=== PATIENT | female | born 1935 | race Caucasian/White ===

== ENCOUNTER 2020-04-04 16:27 | Inpatient (IN) | payer OTHER, MEDICARE ==
[2020-04-04 17:28] VITALS: BMI 29.2
[2020-04-04] MEDS ORDERED: PIPERACILLIN/TAZOB 2.25 GM 2.25 GM in DEXTROSE 5%-WATER - 50 ML IVPB ONE (17:50)
[2020-04-04] MEDS ORDERED: VANCOMYCIN 1 GM in D5W (PRE-DOCKED) 1,000 MG/250 ML IVPB ONE (17:51)
[2020-04-04] MEDS ORDERED: VANCOMYCIN 1,000 MG VIAL (RESTRICTED TO ID ONLY) ONE (18:07)
[2020-04-04 18:15] LABS: INR 1.11 (0.82-1.09); PROTHROMBIN TIME (PATIENT) 12.4 SEC (10.2-13.0)
[2020-04-04 18:21] LABS: ALBUMIN 4.1 g/dl (3.4-5.0); BILIRUBIN,TOTAL 0.7 mg/dl (0.2-1); CALCIUM 8.8 mg/dl (8.5-10); CREATININE 0.5 mg/dl (0.55-1.3); POTASSIUM 3.7 mmol/L (3.5-5.1); TOT PROT 7.5 g/dl (6.4-8.2)
[2020-04-04 18:54] LABS: BASO % 0.5 % (0-2.0); EOS % 1.6 % (0-4.5); HEMATOCRIT 37.8 % (32.4-45.2); HEMOGLOBIN 12.6 GM/dL (10.7-15.3); LYMPH % 9.2 % (8-40); MCH 28.8 pg (25.7-33.7); MCHC 33.3 g/dl (32.0-36.0); MEAN CELL VOLUME 86.4 fl (80-96); MEAN PLT VOLUME 9.2 fl (7.5-11.1); MONO % 7.4 % (3.8-10.2); NEUT % 81.3 % (42.8-82.8); PLATELET COUNT 291 K/MM3 (134-434); RBC 4.38 M/mm3 (3.60-5.2); WHITE BLOOD COUNT 9.1 K/mm3 (4.0-10.0)
--- NOTE | 2020-04-04 18:58 | PDOC ---
Documentation entered by Lois Doll SCRIBE, acting as scribe for Marito Saldana MD. Marito Saldana MD: This documentation has been prepared by the Lavon nieves Maria, SCRIBE, under my direction and personally reviewed by me in its entirety. I confirm that the documentation accurately reflects all work, treatment, procedures, and medical decision making performed by me. History of Present Illness - General Chief Complaint: Wound Stated Complaint: SENT FOR ADMISSION FOR CELLULITIS OF Time Seen by Provider: 04/04/20 16:54 History Source: Patient Exam Limitations: No Limitations - History of Present Illness Initial Comments: 04/04/20 18:08 The patient is an 84 year old female with a significant past medical history of hypertension, Arthritis, Neuropathy, recurrent cellulitis and a prosthetic hip who presents to the emergency department with cellulitis. Patient had positive blood cultures presumed cellulitis and was treated with prolonged IV antibiotics via picc line. Today, patient was seen by infectious disease doctor, Dr. Edwards, and was found to have cellulites and an abscess on her LLE, abscess was drained, and was referred to the emergency department for IV antibiotics and observation. Physical exam: Alert and oriented no acute distress cooperative Afebrile, vital signs normal HEENT normal Neck supple without bruit mass or nodes Lungs clear CV regular without murmur rub or gallop Abdomen soft nontender without mass organomegaly Extremities: Both extremities are extensively bandaged. This was performed after I&D of an abscess of the left leg at the wound care center today. Bandages were not disturbed. Infectious disease consult is familiar with the exam, having performed the I&D today. Assessment: Recurrent cellulitis left leg Plan: Admit for intravenous antibiotics and further evaluation infectious disease. Patient clinically and hemodynamically stable at present, no fever or significant pain. Past History - Medical History Allergies/Adverse Reactions: Allergies Allergy/AdvReac Type Severity Reaction Status Date / Time No Known Allergies Allergy Verified 04/04/20 16:52 Home Medications: Ambulatory Orders Multivitamin [Multivitamins] 1 each PO DAILY 01/13/13 Triamterene/Hydrochlorothiazid [Triamterene-Hctz 37.5-25 mg Tb] 1 each PO DAILY 01/13/13 Vitamin E 200 unit PO Q72H 01/13/13 Aspirin [Aspirin EC] 650 mg PO TID 01/10/14 Iron,Carbonyl/Ascorbic Acid [Iron 100-Vitamin C Tablet] 1 each PO DAILY tablet 12/18/14 Vitamin A 8,000 unit PO Q3RD DAY capsule 12/18/14 Vitamin B Complex 1 each PO ASDIR tablet 12/18/14 Cholecalciferol (Vitamin D3) [Vitamin D3 -] 1,000 unit PO DAILY 03/06/20 Docusate Sodium [Colace -] 100 mg PO TID #30 capsule 03/14/20 Metoprolol Succinate [Toprol Xl] 25 mg PO DAILY #30 tab.er.24h 03/14/20 Aspirin [ASA -] 975 mg PO HS 04/04/20 Astaxanthin 4 mg PO DAILY 04/04/20 Cephalexin [Keflex] 500 mg PO TID 04/04/20 Potassium Chloride 2 tab PO DAILY 04/04/20 Anemia: No Asthma: No Cancer: Yes (BASAL CELL CA 12/2012) Cardiac Disorders: No CVA: No COPD: No CHF: No Dementia: No Diabetes: No GI Disorders: No Disorders: No HTN: Yes Hypercholesterolemia: No Liver Disease: No Seizures: No Thyroid Disease: No Other medical history: CELLULITIS BOTH LEG, RHEUMATOID ARTHRITS - Surgical History Abdominal Surgery: No Appendectomy: No Cardiac Surgery: No Cholecystectomy: No Lung Surgery: No Neurologic Surgery: No Orthopedic Surgery: (RECONSTRUCTIVE LEFT HIP SURGERY WITH BONE GRAFT 2010) - Psycho-Social/Smoking History Smoking History: Never smoked Have you smoked in the past 12 months: No Information on smoking cessation initiated: No - Substance Abuse Hx (Audit-C & DAST Scrn) How often the patient has a drink containing alcohol: Never Score: In Men: 4 or > Positive; In Women: 3 or > Positive: 0 Screen Result (Pos requires Nsg. Audit-10AR): Negative In the last yr the pt used illegal drug/Rx for NonMed reason: No Score: Yes response is considered Positive: 0 Screen Result (Positive result requires Nsg. DAST-10): Negative Review of Systems - Review of Systems Able to Perform ROS?: Yes Comments:: 04/04/20 18:11 CONSTITUTIONAL: Absent: fever, chills, diaphoresis, generalized weakness, malaise, loss of appetite HEENT: Absent: rhinorrhea, nasal congestion, throat pain, throat swelling, difficulty swallowing, mouth swelling, ear pain, eye pain, visual Changes CARDIOVASCULAR: Absent: chest pain, syncope, palpitations, irregular heart rate, lightheadednes s, peripheral edema RESPIRATORY: Absent: cough, shortness of breath, dyspnea with exertion, orthopnea, wheezing, stridor, hemoptysis GASTROINTESTINAL: Absent: abdominal pain, abdominal distension, nausea, vomiting, diarrhea, constipation, melena, hematochezia GENITOURINARY: Absent: dysuria, frequency, urgency, hesitancy, hematuria, flank pain, genital pain MUSCULOSKELETAL: +LLE edema Absent: myalgia, arthralgia, joint swelling SKIN: Absent: rash, itching, pallor HEMATOLOGIC/IMMUNOLOGIC: Absent: easy bleeding, easy bruising, lymphadenopathy, frequent infections ENDOCRINE: Absent: unexplained weight gain, unexplained weight loss, heat intolerance, cold intolerance NEUROLOGIC: Absent: headache, focal weakness or paresthesias, dizziness, unsteady gait, seizure, mental status changes, bladder or bowel incontinence PSYCHIATRIC: Absent: anxiety, depression, suicidal or homicidal ideation, hallucinations. *Physical Exam - Vital Signs Last Vital Signs Temp Pulse Resp BP Pulse Ox 98.2 F 84 18 154/79 99 04/04/20 16:42 04/04/20 16:42 04/04/20 16:42 04/04/20 16:42 04/04/20 16:42 - Physical Exam 04/04/20 18:46 GENERAL: Well developed, well nourished. Awake and alert. No acute distress. HEENT: Normocephalic, atraumatic. PERRLA, EOMI. No conjunctival pallor. Sclera are non- icteric. Moist mucous membranes. Oropharynx is clear. NECK: Supple. Full ROM. No JVD. Carotid pulses 2+ and symmetric, without bruits. No thyromegaly. No lymphadenopathy. CARDIOVASCULAR: Regular rate and rhythm. No murmurs, rubs, or gallops. Distal pulses are 2+ and symmetric. PULMONARY: No evidence of respiratory distress. Lungs clear to auscultation bilaterally. No wheezing, rales or rhonchi. ABDOMINAL: Soft. Non-tender. Non-distended. No rebound or guarding. No organomegaly. Normoactive bowel sounds. MUSCULOSKELETAL : + typical joint deformities of rheumatoid arthritis on the hands and feet. No acute inflammation Normal range of motion at all joints. No bony deformities or tenderness. No CVA tenderness. EXTREMITIES: Cite of IND well dressed and not examined again. No cyanosis. No clubbing SKIN: Warm and dry. Normal capillary refill. No rashes. No jaundice. NEUROLOGICAL: Alert, awake, appropriate. Cranial nerves 2-12 intact. No deficits to light touch and temperature in face, upper extremities and lower extremities. No motor deficits in the in face, upper extremities and lower extremities. Normoreflexic in the upper and lower extremities. Normal speech. Toes are down-going bilaterally. Gait is normal without ataxia. PSYCHIATRIC: Cooperative. Good eye contact. Appropriate mood and affect. ED Treatment Course - LABORATORY CBC & Chemistry Diagram: 04/07/20 06:00 04/06/20 05:40 Discharge - Discharge Information Problems reviewed: Yes Clinical Impression/Diagnosis: Cellulitis of lower extremity Qualifiers: Laterality: left Qualified Code(s): L03.116 - Cellulitis of left lower limb - Admission Yes - Follow up/Referral - Patient Discharge Instructions - Post Discharge Activity
[2020-04-04] MEDS ORDERED: ACETAMINOPHEN 325 MG TABLET (FP) ONE (19:06)
[2020-04-04] MEDS ORDERED: ACETAMINOPHEN 325 MG TABLET (FP) PO ONE (19:12)
[2020-04-05] MEDS ORDERED: PIPERACILLIN/TAZOBACTAM 3.375 GM VIAL IVPB ONE ×2 (08:59→17:32)
[2020-04-05] MEDS ORDERED: DEXTROSE 5%-WATER - 50 ML IVPB ONE ×2 (08:59→17:32)
[2020-04-05] MEDS: ENOXAPARIN NA (PORCINE) 40 MG/0.4 ML DISP.SYRIN SQ SCH (09:09)
[2020-04-05] MEDS ORDERED: PIPERACILLIN/TAZOB 3.375 GM 3.375 GM in DEXTROSE 5%-WATER - 50 ML IVPB SCH (10:00)
[2020-04-05] MEDS: metoPROLOL SUCCINATE 25 MG TAB.SR.24H (FP) PO SCH (10:13)
--- NOTE | 2020-04-05 11:05 | CON.ID ---
Consult - Past Medical History Cardio/Vascular: Yes: AFIB Rheumatology: Yes: Rheumatoid Arthritis - Alcohol/Substance Use Hx Alcohol Use: No - Smoking History Smoking history: Never smoked Have you smoked in the past 12 months: No - Social History Usual Living Arrangement: With Spouse History of Recent Travel: No Home Medications - Allergies Allergies/Adverse Reactions: Allergies Allergy/AdvReac Type Severity Reaction Status Date / Time No Known Allergies Allergy Verified 04/04/20 16:52 - Home Medications Home Medications: Ambulatory Orders Multivitamin [Multivitamins] 1 each PO DAILY 01/13/13 Triamterene/Hydrochlorothiazid [Triamterene-Hctz 37.5-25 mg Tb] 1 each PO DAILY 01/13/13 Vitamin E 200 unit PO Q72H 01/13/13 Aspirin [Aspirin EC] 650 mg PO TID 01/10/14 Iron,Carbonyl/Ascorbic Acid [Iron 100-Vitamin C Tablet] 1 each PO DAILY tablet 12/18/14 Vitamin A 8,000 unit PO Q3RD DAY capsule 12/18/14 Vitamin B Complex 1 each PO ASDIR tablet 12/18/14 Cholecalciferol (Vitamin D3) [Vitamin D3 -] 1,000 unit PO DAILY 03/06/20 Docusate Sodium [Colace -] 100 mg PO TID #30 capsule 03/14/20 Metoprolol Succinate [Toprol Xl] 25 mg PO DAILY #30 tab.er.24h 03/14/20 Aspirin [ASA -] 975 mg PO HS 04/04/20 Astaxanthin 4 mg PO DAILY 04/04/20 Cephalexin [Keflex] 500 mg PO TID 04/04/20 Potassium Chloride 2 tab PO DAILY 04/04/20 Physical Exam Vital Signs: Vital Signs Temperature 98.4 F 04/05/20 09:50 Pulse Rate 75 04/05/20 09:50 Respiratory Rate 18 04/05/20 09:50 Blood Pressure 157/69 04/05/20 09:50 O2 Sat by Pulse Oximetry (%) 100 04/05/20 06:32 Labs: CBC, BMP 04/04/20 17:50 04/04/20 17:26
--- NOTE | 2020-04-05 11:45 | HP ---
CHIEF COMPLAINT: LLE abscess PCP: Dr. Miller HISTORY OF PRESENT ILLNESS: 84 year-old female with a PMH significant for HTN, paroxysmal atrial fibrillation, venous insufficiency, and rheumatoid arthritis. Recently hospitalized from 03/06-03/14 for LLE cellulitis and MSSA bacteremia, discharged with PICC line x 2 weeks Ancef. Patient was seen in [facility] on 04/[address] Edwards and found to have abscess of LLE and bilateral cellulitis. Dr. Jackson performed an incision and drainage. Patient was directed to the [facility] for admission to the hospital. ER course was notable for: (1) afebrile, no leukocytosis Recent Travel: No PAST MEDICAL HISTORY: Hypertension Paroxysmal atrial fibrillation Venous insufficiency Rheumatoid arthritis LLE cellulitis (March 2020) PAST SURGICAL HISTORY: Left hip replacement x 3 (partial, complete, revision) Social History: Lives with . Mostly independent in ADLs with some assistance from him. Patient has been housebound since November, no known COVID exposures Smoking: None Alcohol: None Drugs: None Family history: mother 97; father 84; 1 brother with arthritis Allergies No Known Allergies Allergy (Verified 04/04/20 16:52) HOME MEDICATIONS: Home Medications Medication Instructions Recorded Multivitamin [Multivitamins] 1 each PO DAILY 01/13/13 Triamterene/Hydrochlorothiazid 1 each PO DAILY 01/13/13 [Triamterene-Hctz 37.5-25 mg Tb] Vitamin E 200 unit PO Q72H 01/13/13 Aspirin [Aspirin EC] 650 mg PO TID 01/10/14 Iron,Carbonyl/Ascorbic Acid [Iron 1 each PO DAILY tablet 12/18/14 100-Vitamin C Tablet] Vitamin A 8,000 unit PO Q3RD DAY capsule 12/18/14 Vitamin B Complex 1 each PO ASDIR tablet 12/18/14 Cholecalciferol (Vitamin D3) 1,000 unit PO DAILY 03/06/20 [Vitamin D3 -] Docusate Sodium [Colace -] 100 mg PO TID #30 capsule 03/14/20 Metoprolol Succinate [Toprol Xl] 25 mg PO DAILY #30 tab.er.24h 03/14/20 Aspirin [ASA -] 975 mg PO HS 04/04/20 Astaxanthin 4 mg PO DAILY 04/04/20 Cephalexin [Keflex] 500 mg PO TID 04/04/20 Potassium Chloride 2 tab PO DAILY 04/04/20 REVIEW OF SYSTEMS CONSTITUTIONAL: Absent: fever, chills, diaphoresis, generalized weakness, malaise, loss of appetite, weight change HEENT: Absent: rhinorrhea, nasal congestion, throat pain, throat swelling, difficulty swallowing, mouth swelling, ear pain, eye pain, visual changes CARDIOVASCULAR: Absent: chest pain, syncope, palpitations, irregular heart rate, lightheadedness, peripheral edema RESPIRATORY: Absent: cough, shortness of breath, dyspnea with exertion, orthopnea, wheezing, stridor, hemoptysis GASTROINTESTINAL: Absent: abdominal pain, abdominal distension, nausea, vomiting, diarrhea, constipation, melena, hematochezia GENITOURINARY: Absent: dysuria, frequency, urgency, hesitancy, hematuria, flank pain, genital pain MUSCULOSKELETAL: Absent: myalgia, arthralgia, joint swelling, back pain, neck pain SKIN: +bilateral lower extremity redness, pain in LLE Absent: rash, itching, pallor HEMATOLOGIC/IMMUNOLOGIC: Absent: easy bleeding, easy bruising, lymphadenopathy, frequent infections ENDOCRINE: Absent: unexplained weight gain, unexplained weight loss, heat intolerance, cold intolerance NEUROLOGIC: Absent: headache, focal weakness or paresthesias, dizziness, unsteady gait, seizure, mental status changes, bladder or bowel incontinence PSYCHIATRIC: Absent: anxiety, depression, suicidal or homicidal ideation, hallucinations. PHYSICAL EXAMINATION Vital Signs - 24 hr 04/04/20 04/04/20 04/04/20 16:42 20:55 21:00 Temperature 98.2 F 98.2 F Pulse Rate 84 84 Respiratory 18 18 19 Rate Blood Pressure 154/79 154/79 O2 Sat by Pulse 99 99 99 Oximetry (%) 04/04/20 04/05/20 04/05/20 22:37 02:00 03:50 Temperature 98.5 F 98.3 F 97.9 F Pulse Rate 98 H 88 76 Respiratory 18 19 18 Rate Blood Pressure 130/73 141/62 153/66 O2 Sat by Pulse 97 99 Oximetry (%) 04/05/20 04/05/20 06:32 09:50 Temperature 98.4 F Pulse Rate 75 Respiratory 18 Rate Blood Pressure 157/69 O2 Sat by Pulse 100 Oximetry (%) GENERAL: Awake, alert, and fully oriented, in no acute distress. HEAD: Normal with no signs of trauma. EYES: Pupils equal, round and reactive to light, extraocular movements intact, sclera anicteric, conjunctiva clear. No lid lag. LUNGS: Breath sounds equal, clear to auscultation bilaterally. No wheezes, and no crackles. No accessory muscle use. HEART: Regular rate and rhythm, normal S1 and S2 ABDOMEN: Soft, nontender, not distended UPPER EXTREMITIES: 2+ pulses, warm, well-perfused. No cyanosis. No clubbing. No peripheral edema. RIGHT LOWER EXTREMITY: erythema, warmth posterior lower leg and foot, mild fluctuance lateral malleolus, no skin break seen LEFT LOWER EXTREMITY: dressing removed with dry black eschar and blood; 3cm w ound is clean, no exudate, no bleeding, no surrounding fluctuance; erythema and warmth to lower leg NEUROLOGICAL: Cranial nerves II-XII intact. Normal speech. Laboratory Results - last 24 hr 04/04/20 04/04/20 04/04/20 17:26 17:26 17:26 WBC RBC Hgb Hct MCV MCH MCHC RDW Plt Count MPV Absolute Neuts (auto) Neutrophils % Lymphocytes % Monocytes % Eosinophils % Basophils % Nucleated RBC % PT with INR 12.4 INR 1.11 Sodium 136 Potassium 3.7 Chloride 98 Carbon Dioxide 24 Anion Gap 14 BUN 15.0 Creatinine 0.5 L Est GFR (CKD-EPI)AfAm 103.73 Est GFR (CKD-EPI)NonAf 89.50 Random Glucose 104 Calcium 8.8 Total Bilirubin 0.7 AST 28 ALT 19 Alkaline Phosphatase 85 D Creatine Kinase 54 Troponin I < 0.03 Total Protein 7.5 Albumin 4.1 Urine Color Urine Appearance Urine pH Urine Protein Urine Glucose (UA) Urine Ketones Urine Blood Urine Nitrite Urine Bilirubin Urine Urobilinogen Ur Leukocyte Esterase Urine RBC Urine WBC Urine Bacteria 04/04/20 04/04/20 17:50 17:50 WBC 9.1 RBC 4.38 Hgb 12.6 Hct 37.8 D MCV 86.4 MCH 28.8 MCHC 33.3 RDW 16.0 H Plt Count 291 D MPV 9.2 D Absolute Neuts (auto) 7.4 Neutrophils % 81.3 Lymphocytes % 9.2 Monocytes % 7.4 Eosinophils % 1.6 Basophils % 0.5 Nucleated RBC % 0 PT with INR INR Sodium Potassium Chloride Carbon Dioxide Anion Gap BUN Creatinine Est GFR (CKD-EPI)AfAm Est GFR (CKD-EPI)NonAf Random Glucose Calcium Total Bilirubin AST ALT Alkaline Phosphatase Creatine Kinase Troponin I Total Protein Albumin Urine Color Yellow Urine Appearance Clear Urine pH 7.0 Urine Protein Negative Urine Glucose (UA) Negative Urine Ketones Negative Urine Blood Negative Urine Nitrite Negative Urine Bilirubin Negative Urine Urobilinogen 0.2 Ur Leukocyte Esterase Trace H Urine RBC 0-2 Urine WBC 5-10 Urine Bacteria Few ASSESSMENT/PLAN: 84 year-old female with a PMH significant for HTN, paroxysmal atrial fibrillation, venous insufficiency, and rheumatoid arthritis. Recently hospitalized from 03/06-03/14 for LLE cellulitis and MSSA bacteremia. Bilateral lower extremity cellulitis Right lower extremity abscess --s/p I&D on 04/04 --continue Vanc (day #1) and Zosyn (day #1); cultures pending --xerofoam dressings daily --compression stockings bilaterally Paroxysmal atrial fibrillation --diagnosed during recent hospitalization --decision made not to start anticoagulation due to high ASA dose for RA --rate is well-controlled, continue ToprolXL Rheumatoid arthritis --continue home aspirin regimen 975mg TID --start protonix FEN Fluids: PO intake adequate Electrolytes: replete as indicated Nutrition: low sodium DVT prophylaxis: subq lovenox Physical therapy Dispo: continues to require inpatient care. Full code. Visit type - Emergency Visit Emergency Visit: Yes ED Registration Date: 04/04/20 Care time: The patient presented to the Emergency Department on the above date and was hospitalized for further evaluation of their emergent condition. - New Patient This patient is new to me today: Yes Date on this admission: 04/05/20 - Critical Care Critical Care patient: No
[2020-04-05] MEDS: VANCOMYCIN 1 GRAM (PRE-DOCKED) 1 GM/250 ML BAG IVPB SCH (12:00)
[2020-04-05] MEDS ORDERED: ASPIRIN 325 MG ENTERIC COATED TABLET (FP) PO SCH (14:00)
--- NOTE | 2020-04-05 14:08 | EKG ---
Test Reason : Blood Pressure : / mmHG Vent. Rate : 098 BPM Atrial Rate : 117 BPM P-R Int : 000 ms QRS Dur : 086 ms QT Int : 366 ms P-R-T Axes : 000 007 008 degrees QTc Int : 467 ms ATRIAL FIBRILLATION ABNORMAL ECG WHEN COMPARED WITH ECG OF 08-MAR-2020 15:56, INVERTED T WAVES HAVE REPLACED NONSPECIFIC T WAVE ABNORMALITY IN INFERIOR LEADS Confirmed by SAMSON GARCIA MD ([id number]) on 04/05/2020 2:07:39 PM Referred By: MD REYES Confirmed By:SAMSON GARCIA MD
[2020-04-05] MEDS: DOCUSATE SODIUM 100 MG CAPSULE (FP) PO SCH ×3 (14:55→21:55)
[2020-04-05] MEDS: PANTOPRAZOLE 40 MG TABLET PO SCH (15:13)
[2020-04-05] MEDS: ASPIRIN 325 MG TABLET PO SCH ×4 (15:13→23:50)
[2020-04-05] MEDS: PIPERACILLIN/TAZOB 3.375 GM 3.375 GM in DEXTROSE 5%-WATER - 50 ML IVPB SCH (18:03)
[2020-04-05] MEDS ORDERED: ASPIRIN 325 MG TABLET PO SCH (22:00)
[2020-04-06] MEDS ORDERED: DEXTROSE 5%-WATER - 50 ML IVPB ONE ×2 (01:06→11:36)
[2020-04-06] MEDS ORDERED: PIPERACILLIN/TAZOBACTAM 3.375 GM VIAL IVPB ONE ×2 (01:06→11:36)
[2020-04-06] MEDS: PIPERACILLIN/TAZOB 3.375 GM 3.375 GM in DEXTROSE 5%-WATER - 50 ML IVPB SCH ×2 (01:21→10:05)
--- NOTE | 2020-04-06 05:36 | PN ---
Physical Exam: SUBJECTIVE: Patient seen and examined OBJECTIVE: Vital Signs Period Temp Pulse Resp BP Sys/Stover Pulse Ox Last 24 Hr 98.2 F-99.0 F 75-84 18-18 142-164/64-73 97-100 GENERAL: Awake, alert, and fully oriented, in no acute distress. LUNGS: Breath sounds equal, clear to auscultation bilaterally. No wheezes, and no crackles. No accessory muscle use. HEART: Regular rate and rhythm, ABDOMEN: Soft, nontender, not distended UPPER EXTREMITIES: 2+ pulses, warm, well-perfused. No cyanosis. No clubbing. No peripheral edema. RIGHT LOWER EXTREMITY: erythema, warmth posterior lower leg and foot, mild fluctuance lateral malleolus, no skin break seen LEFT LOWER EXTREMITY: dressing removed again with dry black eschar and blood; 3cm wound is clean, no exudate, no bleeding, no surrounding fluctuance; erythema and warmth to lower leg NEUROLOGICAL: Cranial nerves II-XII intact. Normal speech. Laboratory Results - last 24 hr 04/04/20 04/05/20 17:55 11:30 Ur Random Creatinine 30.0 COVID-19 (GAUDENCIO) Not detected Current Medications Generic Name Dose Route Start Last Admin Trade Name Freq PRN Reason Stop Dose Admin Aspirin 975 mg 04/05/20 14:45 04/06/20 21:31 Asa - PO 975 mg TID DAVY Administration Docusate Sodium 100 mg 04/05/20 06:00 04/06/20 21:31 Colace - PO Not Given TID DAVY Enoxaparin Sodium 40 mg 04/05/20 10:00 04/06/20 10:05 Lovenox - SQ 40 mg DAILY DAVY Administration Ampicillin Sodium/Sulbactam 100 mls @ 200 mls/hr 04/06/20 15:00 04/06/20 21:30 Sodium 3 gm/ Sodium Chloride IVPB 200 mls/hr Q6H-IV DAVY Administration Metoprolol Succinate 25 mg 04/05/20 10:00 04/06/20 10:25 Toprol Xl - PO 25 mg DAILY DAVY Administration Multivitamins/Minerals/Vitamin C 1 tab 04/06/20 10:00 04/06/20 10:25 Tab-A-Vit - PO 1 tab DAILY DAVY Administration Pantoprazole Sodium 40 mg 04/05/20 13:00 04/06/20 10:15 Protonix - PO 40 mg DAILY DAVY Administration Triamterene/HCTZ 1 cap 04/06/20 10:00 04/06/20 10:00 Dyazide 25/37.5mg PO 1 cap DAILY DAVY Administration ASSESSMENT/PLAN: 84 year-old female with a PMH significant for HTN, paroxysmal atrial fibrill ation, venous insufficiency, and rheumatoid arthritis. Recently hospitalized from 03/06-03/14 for LLE cellulitis and MSSA bacteremia. Bilateral lower extremity cellulitis Right lower extremity abscess --s/p I&D on 04/04 --switched to Unasyn today (day #2 IV antibiotics) --xerofoam dressings daily --compression stockings bilaterally Paroxysmal atrial fibrillation --diagnosed during recent hospitalization, decision made not to start anticoagulation due to high ASA dose for RA; primary care provider in agreement per records --on admission was in afib, now in sinus rhythm, rate controlled --continue ToprolXL Rheumatoid arthritis --continue home aspirin regimen 975mg TID --continue protonix FEN Fluids: PO intake adequate Electrolytes: replete as indicated Nutrition: low sodium DVT prophylaxis: subq lovenox Physical therapy Dispo: continues to require inpatient care. Plan is to discharge on Thursday. Full code. Visit type - Emergency Visit Emergency Visit: Yes ED Registration Date: 04/04/20 Care time: The patient presented to the Emergency Department on the above date and was hospitalized for further evaluation of their emergent condition. - New Patient This patient is new to me today: Yes Date on this admission: 04/06/20 - Critical Care Critical Care patient: No
[2020-04-06] MEDS: DOCUSATE SODIUM 100 MG CAPSULE (FP) PO SCH ×3 (06:28→21:31)
[2020-04-06] MEDS: ASPIRIN 325 MG TABLET PO SCH ×3 (06:29→21:31)
[2020-04-06 08:21] LABS: HEMATOCRIT 33.6 % (32.4-45.2); HEMOGLOBIN 11.3 GM/dl (10.7-15.3); MCHC 33.8 g/dl (32.0-36.0); MEAN CELL VOLUME 83.1 fl (80-96); MEAN PLT VOLUME 8.7 fl (7.5-11.1); PLATELET COUNT 209 K/MM3 (134-434); RBC 4.04 M/mm3 (3.60-5.2); RDW 14.5 % (11.6-15.6); WHITE BLOOD COUNT 5.7 K/mm3 (4.0-10.8)
[2020-04-06 08:26] LABS: CALCIUM 8.5 mg/dl (8.5-10); CREATININE 0.6 mg/dl (0.55-1.3); POTASSIUM 3.4 mmol/L (3.5-5.1)
[2020-04-06] MEDS: TRIAMTERENE AND HCTZ - 37.5 MG/25 MG CAPSULE PO SCH (10:00)
[2020-04-06] MEDS: ENOXAPARIN NA (PORCINE) 40 MG/0.4 ML DISP.SYRIN SQ SCH (10:05)
[2020-04-06] MEDS: PANTOPRAZOLE 40 MG TABLET PO SCH (10:15)
[2020-04-06] MEDS: MULTIVITAMINS (DAILY MVI) TABLET (FP) PO SCH (10:25)
[2020-04-06] MEDS: metoPROLOL SUCCINATE 25 MG TAB.SR.24H (FP) PO SCH (10:25)
--- NOTE | 2020-04-06 10:36 | EKG ---
Test Reason : Blood Pressure : / mmHG Vent. Rate : 076 BPM Atrial Rate : 076 BPM P-R Int : 184 ms QRS Dur : 090 ms QT Int : 408 ms P-R-T Axes : 050 -02 019 degrees QTc Int : 459 ms NORMAL SINUS RHYTHM NORMAL ECG WHEN COMPARED WITH ECG OF 04-APR-2020 17:29, SINUS RHYTHM HAS REPLACED ATRIAL FIBRILLATION Confirmed by NAT NUNEZ MD ([id number]) on 04/06/2020 10:36:19 AM Referred By: RAJ GHOTRA Confirmed By:NAT NUNEZ MD
[2020-04-06] MEDS ORDERED: POTASSIUM CHLORIDE TABS 20 MEQ TABLET.ER (FP) PO ONE (11:15)
[2020-04-06] MEDS ORDERED: PT OWN MED DRAWER 7, Y5N ONE (11:36)
[2020-04-06] MEDS: VANCOMYCIN 1 GRAM (PRE-DOCKED) 1 GM/250 ML BAG IVPB SCH (11:59)
--- NOTE | 2020-04-06 14:34 | PN ---
Progress Note, Physician History of Present Illness: Pt states she is feeling "ok" but sometimes has sharp stabbing pain in LLE. Still with LLE edema/erythema. Afebrile, without any other complaints. - Current Medication List Current Medications: Active Medications Aspirin (Asa -) 975 mg PO TID [facility] Last Admin: 04/06/20 06:29 Dose: Not Given Documented by: Docusate Sodium (Colace -) 100 mg PO TID [facility] Last Admin: 04/06/20 06:28 Dose: Not Given Documented by: Enoxaparin Sodium (Lovenox -) 40 mg SQ DAILY [facility] Last Admin: 04/06/20 10:05 Dose: 40 mg Documented by: Vancomycin HCl (Vancomycin (Pre-Docked)) 1 gm in 250 mls @ 166.667 mls/hr IVPB Q24H [facility]; Protocol Last Admin: 04/06/20 11:59 Dose: 166.667 mls/hr Documented by: Piperacillin Sod/Tazobactam (Sod 3.375 gm/ Dextrose) 50 mls @ 100 mls/hr IVPB Q8H-IV [facility]; Protocol Last Admin: 04/06/20 10:05 Dose: 100 mls/hr Documented by: Metoprolol Succinate (Toprol Xl -) 25 mg PO DAILY [facility] Last Admin: 04/06/20 10:25 Dose: 25 mg Documented by: Multivitamins/Minerals/Vitamin C (Tab-A-Vit -) 1 tab PO DAILY [facility] Last Admin: 04/06/20 10:25 Dose: 1 tab Documented by: Pantoprazole Sodium (Protonix -) 40 mg PO DAILY [facility] Last Admin: 04/06/20 10:15 Dose: 40 mg Documented by: Triamterene/HCTZ (Dyazide 25/37.5mg) 1 cap PO DAILY [facility] Last Admin: 04/06/20 10:00 Dose: 1 cap Documented by: - Objective Vital Signs: Vital Signs Temperature 98.5 F 04/06/20 14:20 Pulse Rate 75 04/06/20 14:20 Respiratory Rate 16 04/06/20 14:20 Blood Pressure 150/56 L 04/06/20 14:20 O2 Sat by Pulse Oximetry (%) 100 04/06/20 14:20 Constitutional: Yes: No Distress, Calm Cardiovascular: Yes: Regular Rate and Rhythm Respiratory: Yes: Regular Gastrointestinal: Yes: Normal Bowel Sounds, Soft Wound/Incision: Yes: Other (LLE erythema/warmth/edema with mild tenderness, Lt calf incision site with mild surrounding induration/no fluctuance, serosangu inous discharge noted on dressing) Labs: CBC, BMP 04/06/20 05:40 04/06/20 05:40 INR, PTT INR 1.11 (0.82-1.09) 04/04/20 17:26 Laboratory Last Values WBC 5.7 K/mm3 (4.0-10.8) 04/06/20 05:40 RBC 4.04 M/mm3 (3.60-5.2) 04/06/20 05:40 Hgb 11.3 GM/dl (10.7-15.3) 04/06/20 05:40 Hct 33.6 % (32.4-45.2) D 04/06/20 05:40 MCV 83.1 fl (80-96) 04/06/20 05:40 MCH 28.0 pg (25.7-33.7) 04/06/20 05:40 MCHC 33.8 g/dl (32.0-36.0) 04/06/20 05:40 RDW 14.5 % (11.6-15.6) 04/06/20 05:40 Plt Count 209 K/MM3 (134-434) 04/06/20 05:40 MPV 8.7 fl (7.5-11.1) 04/06/20 05:40 Absolute Neuts (auto) 7.4 K/mm3 (1.5-8.0) 04/04/20 17:50 Neutrophils % 81.3 % (42.8-82.8) 04/04/20 17:50 Lymphocytes % 9.2 % (8-40) 04/04/20 17:50 Monocytes % 7.4 % (3.8-10.2) 04/04/20 17:50 Eosinophils % 1.6 % (0-4.5) 04/04/20 17:50 Basophils % 0.5 % (0-2.0) 04/04/20 17:50 Nucleated RBC % 0 % (0-0) 04/04/20 17:50 PT with INR 12.4 SEC (10.2-13.0) 04/04/20 17:26 INR 1.11 (0.82-1.09) 04/04/20 17:26 Sodium 136 mmol/L (136-145) 04/06/20 05:40 Potassium 3.4 mmol/L (3.5-5.1) L 04/06/20 05:40 Chloride 101 mmol/L (98-107) 04/06/20 05:40 Carbon Dioxide 24 mmol/L (21-32) 04/06/20 05:40 Anion Gap 11 MMOL/L (8-16) 04/06/20 05:40 BUN 14.0 mg/dl (7-18) 04/06/20 05:40 Creatinine 0.6 mg/dl (0.55-1.3) 04/06/20 05:40 Est GFR (CKD-EPI)AfAm 97.69 04/06/20 05:40 Est GFR (CKD-EPI)NonAf 84.29 04/06/20 05:40 Random Glucose 99 mg/dl (74-106) 04/06/20 05:40 Calcium 8.5 mg/dl (8.5-10) 04/06/20 05:40 Total Bilirubin 0.7 mg/dl (0.2-1) 04/04/20 17:26 AST 28 U/L (15-37) 04/04/20 17:26 ALT 19 U/L (13-61) 04/04/20 17:26 Alkaline Phosphatase 85 U/L (45-117) D 04/04/20 17:26 Creatine Kinase 54 U/L (26-192) 04/04/20 17:26 Troponin I < 0.03 ng/ml (0.00-0.05) 04/04/20 17:26 Total Protein 7.5 g/dl (6.4-8.2) 04/04/20 17:26 Albumin 4.1 g/dl (3.4-5.0) 04/04/20 17:26 Urine Color Yellow 04/04/20 17:50 Urine Appearance Clear 04/04/20 17:50 Urine pH 7.0 (4.5-8) 04/04/20 17:50 Urine Protein Negative (NEGATIVE) 04/04/20 17:50 Urine Glucose (UA) Negative (NEGATIVE) 04/04/20 17:50 Urine Ketones Negative (NEGATIVE) 04/04/20 17:50 Urine Blood Negative (NEGATIVE) 04/04/20 17:50 Urine Nitrite Negative (NEGATIVE) 04/04/20 17:50 Urine Bilirubin Negative (NEGATIVE) 04/04/20 17:50 Urine Urobilinogen 0.2 (0.2-1.0) 04/04/20 17:50 Ur Leukocyte Esterase Trace (NEGATIVE) H 04/04/20 17:50 Urine RBC 0-2 /hpf (0-4) 04/04/20 17:50 Urine WBC 5-10 (NEGATIVE) 04/04/20 17:50 Urine Bacteria Few /hpf (NEGATIVE) 04/04/20 17:50 Ur Random Creatinine 30.0 mg/dL 04/05/20 11:30 COVID-19 ([facility]) Not detected (Not Detected) 04/04/20 17:55 Laboratory Tests 04/04/20 04/04/20 04/04/20 17:26 17:26 17:26 WBC RBC Hgb Hct MCV MCH MCHC RDW Plt Count MPV Absolute Neuts (auto) Neutrophils % Lymphocytes % Monocytes % Eosinophils % Basophils % Nucleated RBC % PT with INR 12.4 INR 1.11 Sodium 136 Potassium 3.7 Chloride 98 Carbon Dioxide 24 Anion Gap 14 BUN 15.0 Creatinine 0.5 L Est GFR (CKD-EPI)AfAm 103.73 Est GFR (CKD-EPI)NonAf 89.50 Random Glucose 104 Calcium 8.8 Total Bilirubin 0.7 AST 28 ALT 19 Alkaline Phosphatase 85 D Creatine Kinase 54 Troponin I < 0.03 Total Protein 7.5 Albumin 4.1 Urine Color Urine Appearance Urine pH Urine Protein Urine Glucose (UA) Urine Ketones Urine Blood Urine Nitrite Urine Bilirubin Urine Urobilinogen Ur Leukocyte Esterase Urine RBC Urine WBC Urine Bacteria Ur Random Creatinine COVID-19 ([facility]) 04/04/20 04/04/20 04/04/20 17:50 17:50 17:55 WBC 9.1 RBC 4.38 Hgb 12.6 Hct 37.8 D MCV 86.4 MCH 28.8 MCHC 33.3 RDW 16.0 H Plt Count 291 D MPV 9.2 D Absolute Neuts (auto) 7.4 Neutrophils % 81.3 Lymphocytes % 9.2 Monocytes % 7.4 Eosinophils % 1.6 Basophils % 0.5 Nucleated RBC % 0 PT with INR INR Sodium Potassium Chloride Carbon Dioxide Anion Gap BUN Creatinine Est GFR (CKD-EPI)AfAm Est GFR (CKD-EPI)NonAf Random Glucose Calcium Total Bilirubin AST ALT Alkaline Phosphatase Creatine Kinase Troponin I Total Protein Albumin Urine Color Yellow Urine Appearance Clear Urine pH 7.0 Urine Protein Negative Urine Glucose (UA) Negative Urine Ketones Negative Urine Blood Negative Urine Nitrite Negative Urine Bilirubin Negative Urine Urobilinogen 0.2 Ur Leukocyte Esterase Trace H Urine RBC 0-2 Urine WBC 5-10 Urine Bacteria Few Ur Random Creatinine COVID-19 ([facility]) Not detected 04/05/20 04/06/20 04/06/20 11:30 05:40 05:40 WBC 5.7 RBC 4.04 Hgb 11.3 Hct 33.6 D MCV 83.1 MCH 28.0 MCHC 33.8 RDW 14.5 Plt Count 209 MPV 8.7 Absolute Neuts (auto) Neutrophils % Lymphocytes % Monocytes % Eosinophils % Basophils % Nucleated RBC % PT with INR INR Sodium 136 Potassium 3.4 L Chloride 101 Carbon Dioxide 24 Anion Gap 11 BUN 14.0 Creatinine 0.6 Est GFR (CKD-EPI)AfAm 97.69 Est GFR (CKD-EPI)NonAf 84.29 Random Glucose 99 Calcium 8.5 Total Bilirubin AST ALT Alkaline Phosphatase Creatine Kinase Troponin I Total Protein Albumin Urine Color Urine Appearance Urine pH Urine Protein Urine Glucose (UA) Urine Ketones Urine Blood Urine Nitrite Urine Bilirubin Urine Urobilinogen Ur Leukocyte Esterase Urine RBC Urine WBC Urine Bacteria Ur Random Creatinine 30.0 COVID-19 ([facility]ENC[facility]) Microbiology 04/04/20 17:50 Urine - Urine Clean Catch Urine Culture - Final NO GROWTH OBTAINED 04/04/20 18:08 Blood - Peripheral Venous Blood Culture - Preliminary NO GROWTH OBTAINED AFTER 24 HOURS, INCUBATION TO CONTINUE FOR 4 DAYS. 04/04/20 17:50 Blood - Peripheral Venous Blood Culture - Preliminary NO GROWTH OBTAINED AFTER 24 HOURS, INCUBATION TO CONTINUE FOR 4 DAYS. Wound culture LLE abscess - coagulase neg staph Problem List - Problems (1) Cellulitis of lower extremity Code(s): L03.119 - CELLULITIS OF UNSPECIFIED PART OF LIMB Qualifiers: Laterality: left Qualified Code(s): L03.116 - Cellulitis of left lower limb (2) HTN (hypertension) Code(s): I10 - ESSENTIAL (PRIMARY) HYPERTENSION (3) Rheumatoid arthritis Code(s): M06.9 - RHEUMATOID ARTHRITIS, UNSPECIFIED Assessment/Plan LLE cellulitis with collection s/p drainage RA AFIB HTN Hx of MSSA bactermia -- culture results noted, wound culture from abscess site just prior to admission : coag negative staph, blood cultures neg 24h -- d/c Zosyn/Vancomycin, will switch to Unasyn IV -- LLE still with significant erythema/edema -- continue wound care to Lt calf incision site -- monitor for improvement
[2020-04-06] MEDS ORDERED: AMPICILLIN NA/SULBACTAM NA 3 GM VIAL ONE ×2 (15:21→21:27)
[2020-04-06] MEDS ORDERED: SODIUM CHLORIDE 100 ML IVPB ONE ×2 (15:21→21:27)
[2020-04-06] MEDS: AMPICILLIN NA/SULBACTAM NA 3 GM in SODIUM CHLORIDE 100 ML IVPB SCH ×2 (15:23→21:30)
[2020-04-07] MEDS ORDERED: AMPICILLIN NA/SULBACTAM NA 3 GM VIAL ONE ×4 (02:02→20:13)
[2020-04-07] MEDS ORDERED: SODIUM CHLORIDE 100 ML IVPB ONE ×4 (02:02→20:13)
[2020-04-07] MEDS: AMPICILLIN NA/SULBACTAM NA 3 GM in SODIUM CHLORIDE 100 ML IVPB SCH ×4 (02:06→20:15)
[2020-04-07] MEDS: DOCUSATE SODIUM 100 MG CAPSULE (FP) PO SCH ×4 (06:21→21:06)
[2020-04-07] MEDS: ASPIRIN 325 MG TABLET PO SCH ×3 (08:02→21:05)
[2020-04-07] MEDS ORDERED: PT OWN MED DRAWER 7, Y5N ONE (08:30)
[2020-04-07 09:06] LABS: BASO % 1.1 % (0-2.0); EOS % 5.4 % (0-4.5); HEMATOCRIT 33.9 % (32.4-45.2); HEMOGLOBIN 11.1 GM/dL (10.7-15.3); LYMPH % 19.5 % (8-40); MCH 28.2 pg (25.7-33.7); MCHC 32.8 g/dl (32.0-36.0); MONO % 11.2 % (3.8-10.2); NEUT % 62.8 % (42.8-82.8); PLATELET COUNT 190 K/MM3 (134-434); RBC 3.94 M/mm3 (3.60-5.2); RDW 15.9 % (11.6-15.6); WHITE BLOOD COUNT 5.5 K/mm3 (4.0-10.0)
--- NOTE | 2020-04-07 09:10 | PN ---
Physical Exam: SUBJECTIVE: Patient seen and examined at bedside, reports bilateral lower ext pain well controlled,no other complains. OBJECTIVE: Vital Signs Period Temp Pulse Resp BP Sys/Stover Pulse Ox Last 24 Hr 97.3 F-98.5 F 73-84 16-18 133-153/56-68 96-100 GENERAL: The patient is awake, alert, and fully oriented, in no acute distress. HEAD: Normal with no signs of trauma. EYES: PERRL, extraocular movements intact, sclera anicteric, conjunctiva clear. No ptosis. ENT: Ears normal, nares patent, oropharynx clear without exudates, moist mucous membranes. NECK: Trachea midline, full range of motion, supple. LUNGS: Breath sounds equal, clear to auscultation bilaterally, no wheezes, no crackles, no accessory muscle use. HEART: Regular rate and rhythm, S1, S2 without murmur, rub or gallop. ABDOMEN: Soft, nontender, nondistended, normoactive bowel sounds, no guarding, no rebound, no hepatosplenomegaly, no masses. EXTREMITIES: RLE mild erythema, no wound ,2+ pulses, warm, well-perfused, no edema. LLE-dry black eschar and blood; 3cm wound is clean, erythema and warmth, pulse intact,trace edema NEUROLOGICAL: Cranial nerves II through XII grossly intact. Normal speech, gait not observed. PSYCH: Normal mood, normal affect. SKIN: Warm, dry, normal turgor, no rashes or lesions noted Active Medications Generic Name Dose Route Start Last Admin Trade Name Freq PRN Reason Stop Dose Admin Aspirin 975 mg 04/05/20 14:45 04/07/20 08:02 Asa - PO 975 mg TID [facility] Administration Docusate Sodium 100 mg 04/05/20 06:00 04/07/20 07:11 Colace - PO Not Given TID [facility] Enoxaparin Sodium 40 mg 04/05/20 10:00 04/06/20 10:05 Lovenox - SQ 40 mg DAILY [facility] Administration Ampicillin Sodium/Sulbactam 100 mls @ 200 mls/hr 04/06/20 15:00 04/07/20 08:06 Sodium 3 gm/ Sodium Chloride IVPB 200 mls/hr Q6H-IV [facility] Administration Metoprolol Succinate 25 mg 04/05/20 10:00 04/06/20 10:25 Toprol Xl - PO 25 mg DAILY [facility] Administration Multivitamins/Minerals/Vitamin C 1 tab 04/06/20 10:00 04/06/20 10:25 Tab-A-Vit - PO 1 tab DAILY [facility] Administration Pantoprazole Sodium 40 mg 04/05/20 13:00 04/06/20 10:15 Protonix - PO 40 mg DAILY [facility] Administration Triamterene/HCTZ 1 cap 04/06/20 10:00 04/06/20 10:00 Dyazide 25/37.5mg PO 1 cap DAILY [facility] Administration CxR: CM, no acute lung pathology. Microbiology 04/04/20 18:08 Blood Culture - Preliminary Blood - Peripheral Venous NO GROWTH OBTAINED AFTER 48 HOURS, INCUBATION TO CONTINUE FOR 3 DAYS. 04/04/20 17:50 Blood Culture - Preliminary Blood - Peripheral Venous NO GROWTH OBTAINED AFTER 48 HOURS, INCUBATION TO CONTINUE FOR 3 DAYS. 04/04/20 17:50 Urine Culture - Final Urine - Urine Clean Catch NO GROWTH OBTAINED ASSESSMENT/PLAN: 84 year-old female with a PMH significant for HTN, paroxysmal atrial fibrillation, venous insufficiency, and rheumatoid arthritis. Recently h ospitalized from 03/06-03/14 for LLE cellulitis and MSSA bacteremia. Now found to have abscess of LLE and bilateral cellulitis.Covid negative. *Bilateral lower extremity cellulitis Right lower extremity abscess -s/p I&D on 04/04 -switched to Unasyn 04/06/20(day #3 IV antibiotics) -xerofoam dressings daily -compression stockings bilaterally - afebrile with no leukocytosis *Paroxysmal atrial fibrillation -on admission was in afib, now in sinus rhythm, rate controlled -diagnosed during recent hospitalization, decision made not to start anticoagulation due to high ASA dose for RA; primary care provider in agreement per records -continue Toprol XL *Rheumatoid arthritis -continue home aspirin regimen 975mg TID -continue protonix * HTN- BP stable - will cont on home Dyazide FEN Fluids: PO intake adequate Electrolytes: replete as indicated Nutrition: low sodium DVT prophylaxis: subq Lovenox Physical therapy done, Rec Rehab vs home with home health services and home Dispo: continues to require inpatient care. Plan is to discharge on Thursday. Full code. Visit type - Emergency Visit Emergency Visit: Yes ED Registration Date: 04/04/20 Care time: The patient presented to the Emergency Department on the above date and was hospitalized for further evaluation of their emergent condition. - New Patient This patient is new to me today: Yes Date on this admission: 04/07/20 - Critical Care Critical Care patient: No
[2020-04-07] MEDS: PANTOPRAZOLE 40 MG TABLET PO SCH (09:11)
[2020-04-07] MEDS: metoPROLOL SUCCINATE 25 MG TAB.SR.24H (FP) PO SCH (09:11)
[2020-04-07] MEDS: TRIAMTERENE AND HCTZ - 37.5 MG/25 MG CAPSULE PO SCH (09:11)
[2020-04-07] MEDS: ENOXAPARIN NA (PORCINE) 40 MG/0.4 ML DISP.SYRIN SQ SCH (09:11)
[2020-04-07] MEDS: MULTIVITAMINS (DAILY MVI) TABLET (FP) PO SCH (09:11)
[2020-04-07 10:37] LABS: ALBUMIN 3.2 g/dl (3.4-5.0); BILIRUBIN,TOTAL 0.5 mg/dL (0.2-1); BLOOD UREA NITROGEN 11.4 mg/dL (7-18); CALCIUM 8.4 mg/dL (8.5-10.1); CREATININE 0.5 mg/dL (0.55-1.3); MAGNESIUM 2.2 mg/dL (1.8-2.4); POTASSIUM 3.5 mmol/L (3.5-5.1); TOT PROT 6.5 g/dl (6.4-8.2)
[2020-04-07] MEDS ORDERED: POTASSIUM CHLORIDE TABS 20 MEQ TABLET.ER (FP) PO ONE (11:20)
--- NOTE | 2020-04-07 13:07 | PN ---
Progress Note, Physician History of Present Illness: Pt is alert, afebrile. No new complaints - Current Medication List Current Medications: Active Medications Aspirin (Asa -) 975 mg PO TID [facility] Last Admin: 04/07/20 08:02 Dose: 975 mg Documented by: Docusate Sodium (Colace -) 100 mg PO TID [facility] Last Admin: 04/07/20 07:11 Dose: Not Given Documented by: Enoxaparin Sodium (Lovenox -) 40 mg SQ DAILY [facility] Last Admin: 04/07/20 09:11 Dose: 40 mg Documented by: Ampicillin Sodium/Sulbactam (Sodium 3 gm/ Sodium Chloride) 100 mls @ 200 mls/hr IVPB Q6H-IV [facility] Last Admin: 04/07/20 08:06 Dose: 200 mls/hr Documented by: Metoprolol Succinate (Toprol Xl -) 25 mg PO DAILY [facility] Last Admin: 04/07/20 09:11 Dose: 25 mg Documented by: Multivitamins/Minerals/Vitamin C (Tab-A-Vit -) 1 tab PO DAILY [facility] Last Admin: 04/07/20 09:11 Dose: 1 tab Documented by: Pantoprazole Sodium (Protonix -) 40 mg PO DAILY [facility] Last Admin: 04/07/20 09:11 Dose: 40 mg Documented by: Potassium Chloride (K-Dur -) 10 meq PO DAILY [facility] Triamterene/HCTZ (Dyazide 25/37.5mg) 1 cap PO DAILY [facility] Last Admin: 04/07/20 09:11 Dose: 1 cap Documented by: - Objective Vital Signs: Vital Signs Temperature 97.3 F L 04/07/20 08:38 Pulse Rate 77 04/07/20 08:38 Respiratory Rate 18 04/07/20 09:00 Blood Pressure 139/68 04/07/20 08:38 O2 Sat by Pulse Oximetry (%) 96 04/07/20 09:00 Constitutional: Yes: No Distress Cardiovascular: Yes: Regular Rate and Rhythm Respiratory: Yes: Regular Gastrointestinal: Yes: Normal Bowel Sounds, Soft Wound/Incision: Yes: Dressing Dry and Intact Neurological: Yes: Alert Labs: CBC, BMP 04/07/20 06:00 04/07/20 06:00 INR, PTT INR 1.11 (0.82-1.09) 04/04/20 17:26 Problem List - Problems (1) Cellulitis of lower extremity Code(s): L03.119 - CELLULITIS OF UNSPECIFIED PART OF LIMB Qualifiers: Laterality: left Qualified Code(s): L03.116 - Cellulitis of left lower limb (2) HTN (hypertension) Code(s): I10 - ESSENTIAL (PRIMARY) HYPERTENSION (3) Rheumatoid arthritis Code(s): M06.9 - RHEUMATOID ARTHRITIS, UNSPECIFIED Assessment/Plan LLE cellulitis with collection s/p drainage RA AFIB HTN Hx of MSSA bactermia -- continue Unasyn -- mild improvement LLE erythema/edema -- continue wound care to Lt calf incision site
[2020-04-08] MEDS: AMPICILLIN NA/SULBACTAM NA 3 GM in SODIUM CHLORIDE 100 ML IVPB SCH ×4 (05:00→21:20)
[2020-04-08] MEDS ORDERED: AMPICILLIN NA/SULBACTAM NA 3 GM VIAL ONE ×4 (05:36→21:18)
[2020-04-08] MEDS ORDERED: SODIUM CHLORIDE 100 ML IVPB ONE ×4 (05:36→21:18)
[2020-04-08] MEDS: DOCUSATE SODIUM 100 MG CAPSULE (FP) PO SCH ×3 (06:21→21:21)
[2020-04-08] MEDS: ASPIRIN 325 MG TABLET PO SCH ×3 (08:30→21:20)
--- NOTE | 2020-04-08 09:02 | PN ---
Physical Exam: SUBJECTIVE: Patient seen and examined, NAD, in recliner OBJECTIVE: Vital Signs Period Temp Pulse Resp BP Sys/Stover Pulse Ox Last 24 Hr 97.7 F-98.4 F 73-83 18-18 130-159/58-81 98-99 GENERAL: The patient is awake, alert, and fully oriented, in no acute distress. HEAD: Normal with no signs of trauma. EYES: PERRL, extraocular movements intact, sclera anicteric, conjunctiva clear. No ptosis. ENT: Ears normal, nares patent, oropharynx clear without exudates, moist mucous membranes. NECK: Trachea midline, full range of motion, supple. LUNGS: Breath sounds equal, clear to auscultation bilaterally, no wheezes, no crackles, no accessory muscle use. HEART: Regular rate and rhythm, S1, S2 without murmur, rub or gallop. ABDOMEN: Soft, nontender, nondistended, normoactive bowel sounds, no guarding, no rebound, no hepatosplenomegaly, no masses. EXTREMITIES: 2+ pulses, warm, well-perfused, no edema. NEUROLOGICAL: Cranial nerves II through XII grossly intact. Normal speech, gait not observed. PSYCH: Normal mood, normal affect. SKIN: Warm, dry, normal turgor, no rashes or lesions noted Laboratory Results - last 24 hr 04/07/20 04/07/20 06:00 06:00 WBC 5.5 RBC 3.94 Hgb 11.1 Hct 33.9 MCV 86.0 MCH 28.2 MCHC 32.8 RDW 15.9 H Plt Count 190 D MPV 9.0 Absolute Neuts (auto) 3.5 Neutrophils % 62.8 D Lymphocytes % 19.5 D Monocytes % 11.2 H Eosinophils % 5.4 H D Basophils % 1.1 Nucleated RBC % 0 Sodium 139 Potassium 3.5 Chloride 105 Carbon Dioxide 28 Anion Gap 6 L BUN 11.4 Creatinine 0.5 L Est GFR (CKD-EPI)AfAm 103.73 Est GFR (CKD-EPI)NonAf 89.50 Random Glucose 86 Calcium 8.4 L Magnesium 2.2 Total Bilirubin 0.5 AST 24 ALT 19 Alkaline Phosphatase 92 Total Protein 6.5 Albumin 3.2 L Active Medications Generic Name Dose Route Start Last Admin Trade Name Freq PRN Reason Stop Dose Admin Aspirin 975 mg 04/05/20 14:45 04/07/20 21:05 Asa - PO 975 mg TID [facility] Administration Docusate Sodium 100 mg 04/05/20 06:00 04/08/20 06:21 Colace - PO Not Given TID [facility] Enoxaparin Sodium 40 mg 04/05/20 10:00 04/07/20 09:11 Lovenox - SQ 40 mg DAILY [facility] Administration Ampicillin Sodium/Sulbactam 100 mls @ 200 mls/hr 04/06/20 15:00 04/08/20 05:00 Sodium 3 gm/ Sodium Chloride IVPB 200 mls/hr Q6H-IV [facility] Administration Metoprolol Succinate 25 mg 04/05/20 10:00 04/07/20 09:11 Toprol Xl - PO 25 mg DAILY [facility] Administration Multivitamins/Minerals/Vitamin C 1 tab 04/06/20 10:00 04/07/20 09:11 Tab-A-Vit - PO 1 tab DAILY [facility] Administration Pantoprazole Sodium 40 mg 04/05/20 13:00 04/07/20 09:11 Protonix - PO 40 mg DAILY [facility] Administration Potassium Chloride 10 meq 04/08/20 10:00 K-Dur - PO DAILY [facility] Triamterene/HCTZ 1 cap 04/06/20 10:00 04/07/20 09:11 Dyazide 25/37.5mg PO 1 cap DAILY [facility] Administration ASSESSMENT/PLAN: 84 year-old female with a PMH significant for HTN, paroxysmal atrial fibrillation, venous insufficiency, and rheumatoid arthritis. Recently hospitalized from 03/06-03/14 for LLE cellulitis and MSSA bacteremia. Now found to have abscess of LLE and bilateral cellulitis.Covid negative. *Bilateral lower extremity cellulitis *Right lower extremity abscess -s/p I&D on 04/04 -switched to Unasyn 04/06/20(day #4 IV antibiotics) -xerofoam dressings daily -compression stockings bilaterally - afebrile with no leukocytosis *Paroxysmal atrial fibrillation -on admission was in afib, now in sinus rhythm, rate controlled -diagnosed during recent hospitalization, decision made not to start anticoagulation due to high ASA dose for RA; primary care provider in agreement per records -continue Toprol XL *Rheumatoid arthritis -continue home aspirin regimen 975mg TID -continue protonix * HTN- BP stable - will cont on home Dyazide FEN Fluids: PO intake adequate Electrolytes: replete as indicated Nutrition: low sodium DVT prophylaxis: subq Lovenox Physical therapy done, Rec Rehab vs home with home health services and home Dispo: continues to require inpatient care. Plan is to discharge on Thursday. Full code. Visit type - Emergency Visit Emergency Visit: Yes ED Registration Date: 04/04/20 Care time: The patient presented to the Emergency Department on the above date and was hospitalized for further evaluation of their emergent condition. - New Patient This patient is new to me today: Yes Date on this admission: 04/08/20 - Critical Care Critical Care patient: No
[2020-04-08] MEDS ORDERED: PT OWN MED DRAWER 7, Y5N ONE (09:09)
[2020-04-08] MEDS: MULTIVITAMINS (DAILY MVI) TABLET (FP) PO SCH (09:12)
[2020-04-08] MEDS: POTASSIUM CHLORIDE TABS 10 MEQ TABLET.ER (FP) PO SCH (09:12)
[2020-04-08] MEDS: TRIAMTERENE AND HCTZ - 37.5 MG/25 MG CAPSULE PO SCH (09:12)
[2020-04-08] MEDS: PANTOPRAZOLE 40 MG TABLET PO SCH (09:12)
[2020-04-08] MEDS: metoPROLOL SUCCINATE 25 MG TAB.SR.24H (FP) PO SCH (09:12)
[2020-04-08] MEDS: ENOXAPARIN NA (PORCINE) 40 MG/0.4 ML DISP.SYRIN SQ SCH (09:13)
--- NOTE | 2020-04-08 17:33 | PN ---
Progress Note, Physician History of Present Illness: Pt is alert, afebrile stating she feels better. Sharp pains in LLE lessened. LE swelling slowly improving. - Current Medication List Current Medications: Active Medications Aspirin (Asa -) 975 mg PO TID [facility] Last Admin: 04/08/20 14:10 Dose: 975 mg Documented by: Docusate Sodium (Colace -) 100 mg PO TID [facility] Last Admin: 04/08/20 14:10 Dose: 100 mg Documented by: Enoxaparin Sodium (Lovenox -) 40 mg SQ DAILY [facility] Last Admin: 04/08/20 09:13 Dose: 40 mg Documented by: Ampicillin Sodium/Sulbactam (Sodium 3 gm/ Sodium Chloride) 100 mls @ 200 mls/hr IVPB Q6H-IV [facility] Last Admin: 04/08/20 15:07 Dose: 200 mls/hr Documented by: Metoprolol Succinate (Toprol Xl -) 25 mg PO DAILY [facility] Last Admin: 04/08/20 09:12 Dose: 25 mg Documented by: Multivitamins/Minerals/Vitamin C (Tab-A-Vit -) 1 tab PO DAILY [facility] Last Admin: 04/08/20 09:12 Dose: 1 tab Documented by: Pantoprazole Sodium (Protonix -) 40 mg PO DAILY [facility] Last Admin: 04/08/20 09:12 Dose: 40 mg Documented by: Potassium Chloride (K-Dur -) 10 meq PO DAILY [facility] Last Admin: 04/08/20 09:12 Dose: 10 meq Documented by: Triamterene/HCTZ (Dyazide 25/37.5mg) 1 cap PO DAILY [facility] Last Admin: 04/08/20 09:12 Dose: 1 cap Documented by: - Objective Vital Signs: Vital Signs Temperature 97.9 F 04/08/20 14:00 Pulse Rate 74 04/08/20 14:00 Respiratory Rate 18 04/08/20 14:00 Blood Pressure 140/60 04/08/20 14:00 O2 Sat by Pulse Oximetry (%) 98 04/08/20 14:00 Constitutional: Yes: No Distress, Calm Cardiovascular: Yes: Regular Rate and Rhythm Respiratory: Yes: Regular Gastrointestinal: Yes: Normal Bowel Sounds, Soft Wound/Incision: Yes: Other (LLE edema/erythema less, less tenderness) Neurological: Yes: Alert, Oriented Labs: CBC, BMP 04/07/20 06:00 04/07/20 06:00 INR, PTT INR 1.11 (0.82-1.09) 04/04/20 17:26 Laboratory Last Values WBC 5.5 K/mm3 (4.0-10.0) 04/07/20 06:00 RBC 3.94 M/mm3 (3.60-5.2) 04/07/20 06:00 Hgb 11.1 GM/dL (10.7-15.3) 04/07/20 06:00 Hct 33.9 % (32.4-45.2) 04/07/20 06:00 MCV 86.0 fl (80-96) 04/07/20 06:00 MCH 28.2 pg (25.7-33.7) 04/07/20 06:00 MCHC 32.8 g/dl (32.0-36.0) 04/07/20 06:00 RDW 15.9 % (11.6-15.6) H 04/07/20 06:00 Plt Count 190 K/MM3 (134-434) D 04/07/20 06:00 MPV 9.0 fl (7.5-11.1) 04/07/20 06:00 Absolute Neuts (auto) 3.5 K/mm3 (1.5-8.0) 04/07/20 06:00 Neutrophils % 62.8 % (42.8-82.8) D 04/07/20 06:00 Lymphocytes % 19.5 % (8-40) D 04/07/20 06:00 Monocytes % 11.2 % (3.8-10.2) H 04/07/20 06:00 Eosinophils % 5.4 % (0-4.5) H D 04/07/20 06:00 Basophils % 1.1 % (0-2.0) 04/07/20 06:00 Nucleated RBC % 0 % (0-0) 04/07/20 06:00 PT with INR 12.4 SEC (10.2-13.0) 04/04/20 17:26 INR 1.11 (0.82-1.09) 04/04/20 17:26 Sodium 139 mmol/L (136-145) 04/07/20 06:00 Potassium 3.5 mmol/L (3.5-5.1) 04/07/20 06:00 Chloride 105 mmol/L (98-107) 04/07/20 06:00 Carbon Dioxide 28 mmol/L (21-32) 04/07/20 06:00 Anion Gap 6 MMOL/L (8-16) L 04/07/20 06:00 BUN 11.4 mg/dL (7-18) 04/07/20 06:00 Creatinine 0.5 mg/dL (0.55-1.3) L 04/07/20 06:00 Est GFR (CKD-EPI)AfAm 103.73 04/07/20 06:00 Est GFR (CKD-EPI)NonAf 89.50 04/07/20 06:00 Random Glucose 86 mg/dL (74-106) 04/07/20 06:00 Calcium 8.4 mg/dL (8.5-10.1) L 04/07/20 06:00 Magnesium 2.2 mg/dL (1.8-2.4) 04/07/20 06:00 Total Bilirubin 0.5 mg/dL (0.2-1) 04/07/20 06:00 AST 24 U/L (15-37) 04/07/20 06:00 ALT 19 U/L (13-61) 04/07/20 06:00 Alkaline Phosphatase 92 U/L (45-117) 04/07/20 06:00 Creatine Kinase 54 U/L (26-192) 04/04/20 17:26 Troponin I < 0.03 ng/ml (0.00-0.05) 04/04/20 17:26 Total Protein 6.5 g/dl (6.4-8.2) 04/07/20 06:00 Albumin 3.2 g/dl (3.4-5.0) L 04/07/20 06:00 Urine Color Yellow 04/04/20 17:50 Urine Appearance Clear 04/04/20 17:50 Urine pH 7.0 (4.5-8) 04/04/20 17:50 Urine Protein Negative (NEGATIVE) 04/04/20 17:50 Urine Glucose (UA) Negative (NEGATIVE) 04/04/20 17:50 Urine Ketones Negative (NEGATIVE) 04/04/20 17:50 Urine Blood Negative (NEGATIVE) 04/04/20 17:50 Urine Nitrite Negative (NEGATIVE) 04/04/20 17:50 Urine Bilirubin Negative (NEGATIVE) 04/04/20 17:50 Urine Urobilinogen 0.2 (0.2-1.0) 04/04/20 17:50 Ur Leukocyte Esterase Trace (NEGATIVE) H 04/04/20 17:50 Urine RBC 0-2 /hpf (0-4) 04/04/20 17:50 Urine WBC 5-10 (NEGATIVE) 04/04/20 17:50 Urine Bacteria Few /hpf (NEGATIVE) 04/04/20 17:50 Ur Random Creatinine 30.0 mg/dL 04/05/20 11:30 COVID-19 ([facility]UDENCIO) Not detected (Not Detected) 04/04/20 17:55 Microbiology 04/04/20 18:08 Blood - Peripheral Venous Blood Culture - Preliminary NO GROWTH OBTAINED AFTER 72 HOURS, INCUBATION TO CONTINUE FOR 2 DAYS. 04/04/20 17:50 Blood - Peripheral Venous Blood Culture - Preliminary NO GROWTH OBTAINED AFTER 72 HOURS, INCUBATION TO CONTINUE FOR 2 DAYS. 04/04/20 17:50 Urine - Urine Clean Catch Urine Culture - Final NO GROWTH OBTAINED Problem List - Problems (1) Cellulitis of lower extremity Code(s): L03.119 - CELLULITIS OF UNSPECIFIED PART OF LIMB Qualifiers: Laterality: left Qualified Code(s): L03.116 - Cellulitis of left lower limb (2) HTN (hypertension) Code(s): I10 - ESSENTIAL (PRIMARY) HYPERTENSION (3) Rheumatoid arthritis Code(s): M06.9 - RHEUMATOID ARTHRITIS, UNSPECIFIED Assessment/Plan LLE cellulitis with abscess s/p drainage RA AFIB HTN Hx of MSSA bactermia -- continue Unasyn -- improving LLE erythema/edema but still significant -- continue wound care to Lt calf incision site, leg elevation
[2020-04-09] MEDS ORDERED: AMPICILLIN NA/SULBACTAM NA 3 GM VIAL ONE ×4 (02:24→21:38)
[2020-04-09] MEDS ORDERED: SODIUM CHLORIDE 100 ML IVPB ONE ×4 (02:25→21:38)
[2020-04-09] MEDS: AMPICILLIN NA/SULBACTAM NA 3 GM in SODIUM CHLORIDE 100 ML IVPB SCH ×4 (02:26→21:40)
[2020-04-09] MEDS: DOCUSATE SODIUM 100 MG CAPSULE (FP) PO SCH ×3 (06:17→21:41)
[2020-04-09 07:44] LABS: BASO % 0.8 % (0-2.0); EOS % 5.8 % (0-4.5); HEMATOCRIT 33.2 % (32.4-45.2); HEMOGLOBIN 10.9 GM/dl (10.7-15.3); LYMPH % 18.2 % (8-40); MCH 27.6 pg (25.7-33.7); MCHC 32.8 g/dl (32.0-36.0); MEAN CELL VOLUME 83.9 fl (80-96); MEAN PLT VOLUME 8.9 fl (7.5-11.1); MONO % 9.3 % (3.8-10.2); NEUT % 65.9 % (42.8-82.8); PLATELET COUNT 211 K/MM3 (134-434); RBC 3.95 M/mm3 (3.60-5.2); RDW 14.4 % (11.6-15.6); WHITE BLOOD COUNT 5.7 K/mm3 (4.0-10.8)
[2020-04-09] MEDS: ASPIRIN 325 MG TABLET PO SCH ×3 (08:28→21:40)
[2020-04-09 08:40] LABS: ALBUMIN 3.3 g/dl (3.4-5.0); BILIRUBIN,TOTAL 0.8 mg/dl (0.2-1); CALCIUM 8.8 mg/dl (8.5-10); CREATININE 0.6 mg/dl (0.55-1.3); MAGNESIUM 1.9 mg/dL (1.8-2.4); POTASSIUM 3.9 mmol/L (3.5-5.1); TOT PROT 6.3 g/dl (6.4-8.2)
[2020-04-09] MEDS: metoPROLOL SUCCINATE 25 MG TAB.SR.24H (FP) PO SCH (09:05)
[2020-04-09] MEDS: TRIAMTERENE AND HCTZ - 37.5 MG/25 MG CAPSULE PO SCH (09:30)
[2020-04-09] MEDS: ENOXAPARIN NA (PORCINE) 40 MG/0.4 ML DISP.SYRIN SQ SCH (09:37)
[2020-04-09] MEDS: POTASSIUM CHLORIDE TABS 10 MEQ TABLET.ER (FP) PO SCH (10:24)
[2020-04-09] MEDS: MULTIVITAMINS (DAILY MVI) TABLET (FP) PO SCH (10:24)
[2020-04-09] MEDS: PANTOPRAZOLE 40 MG TABLET PO SCH (10:24)
--- NOTE | 2020-04-09 10:55 | PN ---
Physical Exam: SUBJECTIVE: Patient seen and examined. Denies pain in leg. Irritated at nursing staff for putting her back in bed after a run of afib with RVR. Patient states she has no heart problems and it is important to her that she be "happy" and not be told bad news. OBJECTIVE: Vital Signs Period Temp Pulse Resp BP Sys/Stover Pulse Ox Last 24 Hr 97.7 F-98.7 F 73-134 17-20 140-169/50-80 98-98 GENERAL: Awake, alert, and fully oriented, in no acute distress. LUNGS: Breath sounds equal, clear to auscultation bilaterally HEART: Irregular, S1, S2 ABDOMEN: Soft, nontender, not distended UPPER EXTREMITIES: 2+ pulses, warm, well-perfused. No cyanosis. No clubbing. No peripheral edema. LEFT LOWER EXTREMITY: dressing c/d/i; wound not visualized NEUROLOGICAL: Cranial nerves II-XII intact. Normal speech. Laboratory Results - last 24 hr 04/09/20 04/09/20 06:00 06:00 WBC 5.7 RBC 3.95 Hgb 10.9 Hct 33.2 MCV 83.9 MCH 27.6 MCHC 32.8 RDW 14.4 Plt Count 211 MPV 8.9 Absolute Neuts (auto) 3.9 Neutrophils % 65.9 Lymphocytes % 18.2 Monocytes % 9.3 Eosinophils % 5.8 H Basophils % 0.8 Sodium 140 Potassium 3.9 Chloride 100 Carbon Dioxide 28 Anion Gap 12 BUN 14.0 Creatinine 0.6 Est GFR (CKD-EPI)AfAm 97.69 Est GFR (CKD-EPI)NonAf 84.29 Random Glucose 96 Calcium 8.8 Magnesium 1.9 Total Bilirubin 0.8 AST 24 ALT 17 Alkaline Phosphatase 70 D Total Protein 6.3 L Albumin 3.3 L Active Medications Generic Name Dose Route Start Last Admin Trade Name Freq PRN Reason Stop Dose Admin Aspirin 975 mg 04/05/20 14:45 04/09/20 08:28 Asa - PO 975 mg TID [facility] Administration Docusate Sodium 100 mg 04/05/20 06:00 04/09/20 06:17 Colace - PO Not Given TID [facility] Enoxaparin Sodium 40 mg 04/05/20 10:00 04/09/20 09:37 Lovenox - SQ 40 mg DAILY [facility] Administration Ampicillin Sodium/Sulbactam 100 mls @ 200 mls/hr 04/06/20 15:00 04/09/20 09:30 Sodium 3 gm/ Sodium Chloride IVPB 200 mls/hr Q6H-IV [facility] Administration Metoprolol Succinate 25 mg 04/05/20 10:00 04/09/20 09:05 Toprol Xl - PO 25 mg DAILY [facility] Administration Multivitamins/Minerals/Vitamin C 1 tab 04/06/20 10:00 04/08/20 09:12 Tab-A-Vit - PO 1 tab DAILY [facility] Administration Pantoprazole Sodium 40 mg 04/05/20 13:00 04/08/20 09:12 Protonix - PO 40 mg DAILY [facility] Administration zPotassium Chloride 10 meq 04/08/20 10:00 04/08/20 09:12 K-Dur - PO 10 meq DAILY [facility] Administration Triamterene/HCTZ 1 cap 04/06/20 10:00 04/09/20 09:30 Dyazide 25/37.5mg PO 1 cap DAILY [facility] Administration ASSESSMENT/PLAN: 84 year-old female with a PMH significant for HTN, paroxysmal atrial fibrillation, venous insufficiency, and rheumatoid arthritis. Recently hospitalized from 03/06-03/14 for LLE cellulitis and MSSA bacteremia. Bilateral lower extremity cellulitis Right lower extremity abscess --s/p I&D on 04/04 --continue Unasyn today (day #5 IV antibiotics) --xerofoam dressings daily --compression stockings bilaterally --leg elevation Paroxysmal atrial fibrillation with RVR --initially diagnosed during recent hospitalization; [id number] score indicates AC is appropriate but decision made not to start anticoagulation due to high dose ASA for RA; primary care provider in agreement per records --in past 48 hours episodes of RVR to 160s --per cardiology, increase ToprolXL to 25mg BID --telemetry monitoring Rheumatoid arthritis --continue home aspirin regimen 975mg TID --continue protonix FEN Fluids: PO intake adequate Electrolytes: replete as indicated Nutrition: low sodium DVT prophylaxis: subq lovenox Physical therapy Dispo: continues to require inpatient care. Full code. Visit type - Emergency Visit Emergency Visit: Yes ED Registration Date: 04/04/20 Care time: The patient presented to the Emergency Department on the above date and was hospitalized for further evaluation of their emergent condition. - New Patient This patient is new to me today: No - Critical Care Critical Care patient: No
--- NOTE | 2020-04-09 13:41 | CON.CARD ---
Cardiology Consult (text) - Consultation Consultation Note: Chief Complaint: Cellulitis History of Present Illness: 84-year-old female with a history of pafib, HTN and rheumatoid arthritis who presented to the ED for evaluation of recurrent left lower extremity regan lulitis. No cp sob palps dizzy loc pnd orthopnea le edema. Having episodes rvr at times. 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: Alzheimer's, CVA, Dementia, Migraine, Multiple Sclerosis, Peripheral Neuropathy, Parkinson's, Seizure, Syncope, TIA, Vertigo, Other Cardio/Vascular: Yes: AFIB Pulmonary: No: Asthma, Bronchitis, Cancer, COPD, O2 Dependent, Pneumonia, Previously Intubated, Pulmonary Embolus, Pulmonary Fibrosis, Sleep Apnea, Other Gastrointestinal: No: Ascites, Cancer, Constipation, Crohn's Disease, Diverticulitis, Diverticulosis, Esophageal Varices, Gastritis, GERD, GI Bleed, Hemorrhoids, Hiatal Hernia, Inflamatory Bowel Disease, Irritable Bowel Disease, Pancreatitis, Peptic Ulcer Disease, Ulcerative Colitis, Other Hepatobiliary: No: Cirrhosis, Cholelithiasis, Cholecystitis, Choledocholithiasis, Hepatitis A, Hepatitis B, Hepatitis C, Other Renal/: No: Renal Failure, Renal Inusuff, BPH, Cancer, Hematuria, Hemodialysis, Neurogenic Bladder, Renal Calculi, UTI, Other Reproductive: No: Ectopic , Endometriosis, Fibroids, PID, Polycystic Ovary Syndrome, Postmenopausal, Other Heme/Onc: No: Anemia, B12 Deficiency, Bleeding Disorder, Cancer, Current Chemotherapy, Current Radiation Therapy, Hemochromatosis, Hypercoaguable State, Myeloproliferative Synd, Sickle Cell Disease, Sickle Cell Trait, Thrombocytopenia, Other Infectious Disease: No: AIDS, C-Diff, Herpes Zoster, HIV, MRSA, STD's, Tuberculosis, VREF, Other Rheumatology: Yes: Rheumatoid Arthritis ENT: No: Allergic Rhinitis, Sinusitis, Other Endocrine: No: Craig's Disease, Aubree's Disease, Diabetes Insipidus, Diabetes Mellitus, Hyperparathyroidism, Hyperthyroidism, Hypothyroidism, Osteopenia, SIADH, Other - Alcohol/Substance Use Hx Alcohol Use: No - Smoking History Smoking history: Never smoked Have you smoked in the past 12 months: No - Social History Usual Living Arrangement: With Spouse History of Recent Travel: No Home Medications - Allergies Allergies/Adverse Reactions: Allergies Allergy/AdvReac Type Severity Reaction Status Date / Time No Known Allergies Allergy Verified 04/04/20 16:52 Current Medications Generic Name Dose Route Start Last Admin Trade Name Rachael PRN Reason Stop Dose Admin Aspirin 975 mg 04/05/20 14:45 04/09/20 08:28 Asa - PO 975 mg TID [facility] Administration Docusate Sodium 100 mg 04/05/20 06:00 04/09/20 06:17 Colace - PO Not Given TID [facility] Enoxaparin Sodium 40 mg 04/05/20 10:00 04/09/20 09:37 Lovenox - SQ 40 mg DAILY [facility] Administration Ampicillin Sodium/Sulbactam 100 mls @ 200 mls/hr 04/06/20 15:00 04/09/20 09:30 Sodium 3 gm/ Sodium Chloride IVPB 200 mls/hr Q6H-IV [facility] Administration Metoprolol Succinate 25 mg 04/10/20 10:00 Toprol Xl - PO BID [facility] Metoprolol Succinate 25 mg 04/09/20 13:42 Toprol Xl - PO 04/09/20 13:43 ONCE ONE Multivitamins/Minerals/Vitamin C 1 tab 04/06/20 10:00 04/09/20 10:24 Tab-A-Vit - PO 1 tab DAILY [facility] Administration Pantoprazole Sodium 40 mg 04/05/20 13:00 04/09/20 10:24 Protonix - PO 40 mg DAILY [facility] Administration Potassium Chloride 10 meq 04/08/20 10:00 04/09/20 10:24 K-Dur - PO 10 meq DAILY [facility] Administration Triamterene/HCTZ 1 cap 04/06/20 10:00 04/09/20 09:30 Dyazide 25/37.5mg PO 1 cap DAILY [facility] Administration Discontinued Medications Generic Name Dose Route Start Last Admin Trade Name Rachael PRN Reason Stop Dose Admin Acetaminophen 650 mg 04/04/20 19:12 04/04/20 19:13 Tylenol - PO 04/04/20 19:13 650 mg ONCE ONE Administration Aspirin 975 mg 04/05/20 22:00 Asa - PO HS [facility] Aspirin 650 mg 04/05/20 14:00 Ecotrin - PO TID [facility] Piperacillin Sod/Tazobactam 50 mls @ 100 mls/hr 04/04/20 17:50 04/04/20 20:00 Sod 2.25 gm/ Dextrose IVPB 04/04/20 18:19 100 mls/hr ONCE ONE Administration Protocol Piperacillin Sod/Tazobactam 50 mls @ 100 mls/hr 04/05/20 10:00 04/05/20 17:00 Sod 3.375 gm/ Dextrose IVPB 04/06/20 09:59 Not Given Q8H-IV [facility] Protocol Piperacillin Sod/Tazobactam 50 mls @ 100 mls/hr 04/05/20 10:00 04/05/20 09:10 Sod 3.375 gm/ Dextrose IVPB 04/06/20 02:29 100 mls/hr Q8H-IV [facility] Administration Protocol Vancomycin HCl 1 gm in 250 mls @ 166.667 mls/hr 04/05/20 11:30 04/06/20 11:59 Vancomycin (Pre-Docked) IVPB 166.667 mls/hr Q24H [facility] Administration Protocol Piperacillin Sod/Tazobactam 50 mls @ 100 mls/hr 04/05/20 18:00 04/06/20 10:05 Sod 3.375 gm/ Dextrose IVPB 100 mls/hr Q8H-IV [facility] Administration Protocol Metoprolol Succinate 25 mg 04/05/20 10:00 04/09/20 09:05 Toprol Xl - PO 25 mg DAILY [facility] Administration Potassium Chloride 40 meq 04/06/20 11:15 04/06/20 11:30 K-Dur - PO 04/06/20 11:16 40 meq ONCE ONE Administration Potassium Chloride 20 meq 04/07/20 11:20 04/07/20 12:02 K-Dur - PO 04/07/20 11:21 20 meq ONCE ONE Administration Vancomycin HCl 1,000 mg 04/04/20 17:51 04/04/20 18:35 Vancomycin (Pre-Docked) IVPB 04/04/20 17:52 1,000 mg ONCE ONE Administration Protocol Home Medications Medication Instructions Recorded Multivitamin [Multivitamins] 1 each PO DAILY 01/13/13 Triamterene/Hydrochlorothiazid 1 each PO DAILY 01/13/13 [Triamterene-Hctz 37.5-25 mg Tb] Vitamin E 200 unit PO Q72H 01/13/13 Aspirin [Aspirin EC] 650 mg PO TID 01/10/14 Iron,Carbonyl/Ascorbic Acid [Iron 1 each PO DAILY tablet 12/18/14 100-Vitamin C Tablet] Vitamin A 8,000 unit PO Q3RD DAY capsule 12/18/14 Vitamin B Complex 1 each PO ASDIR tablet 12/18/14 Cholecalciferol (Vitamin D3) 1,000 unit PO DAILY 03/06/20 [Vitamin D3 -] Docusate Sodium [Colace -] 100 mg PO TID #30 capsule 03/14/20 Metoprolol Succinate [Toprol Xl] 25 mg PO DAILY #30 tab.er.24h 03/14/20 Aspirin [ASA -] 975 mg PO HS 04/04/20 Astaxanthin 4 mg PO DAILY 04/04/20 Cephalexin [Keflex] 500 mg PO TID 04/04/20 Potassium Chloride 2 tab PO DAILY 04/04/20 Family Medical History Family History: Unremarkable (non-contrib) Review of Systems Findings/Remarks: see hpi, msk pains from arthritis; all others nl - Risk Factors Known Risk Factors: Yes: Age Vital Signs: Vital Signs Period Temp Pulse Resp BP Sys/Stover Pulse Ox Last 24 Hr 97.7 F-98.7 F 73-134 17-20 140-169/50-80 98-98 Constitutional: Yes: No Distress, Calm Eyes: Yes: Conjunctiva Clear, EOM Intact Respiratory: Yes: CTA Bilaterally nl eff Gastrointestinal: Yes: Soft (nt) Cardiovascular: Yes: irreg JVD: No Carotid Bruit: No Heart Sounds: Yes: S1, S2 (rrr, no murmurs) Edema: no Peripheral Pulses WNL: Yes Integumentary: Yes: Other (LE cellulitis as documented) Neurological: Yes: Alert, Oriented ...Motor Strength: WNL Psychiatric: Yes: WNL no jaundice diaphoresis - Other Data Labs, Other Data: Laboratory Last Values WBC 5.7 K/mm3 (4.0-10.8) 04/09/20 06:00 RBC 3.95 M/mm3 (3.60-5.2) 04/09/20 06:00 Hgb 10.9 GM/dl (10.7-15.3) 04/09/20 06:00 Hct 33.2 % (32.4-45.2) 04/09/20 06:00 MCV 83.9 fl (80-96) 04/09/20 06:00 MCH 27.6 pg (25.7-33.7) 04/09/20 06:00 MCHC 32.8 g/dl (32.0-36.0) 04/09/20 06:00 RDW 14.4 % (11.6-15.6) 04/09/20 06:00 Plt Count 211 K/MM3 (134-434) 04/09/20 06:00 MPV 8.9 fl (7.5-11.1) 04/09/20 06:00 Absolute Neuts (auto) 3.9 K/mm3 04/09/20 06:00 Neutrophils % 65.9 % (42.8-82.8) 04/09/20 06:00 Lymphocytes % 18.2 % (8-40) 04/09/20 06:00 Monocytes % 9.3 % (3.8-10.2) 04/09/20 06:00 Eosinophils % 5.8 % (0-4.5) H 04/09/20 06:00 Basophils % 0.8 % (0-2.0) 04/09/20 06:00 Nucleated RBC % 0 % (0-0) 04/07/20 06:00 PT with INR 12.4 SEC (10.2-13.0) 04/04/20 17:26 INR 1.11 (0.82-1.09) 04/04/20 17:26 Sodium 140 mmol/L (136-145) 04/09/20 06:00 Potassium 3.9 mmol/L (3.5-5.1) 04/09/20 06:00 Chloride 100 mmol/L (98-107) 04/09/20 06:00 Carbon Dioxide 28 mmol/L (21-32) 04/09/20 06:00 Anion Gap 12 MMOL/L (8-16) 04/09/20 06:00 BUN 14.0 mg/dl (7-18) 04/09/20 06:00 Creatinine 0.6 mg/dl (0.55-1.3) 04/09/20 06:00 Est GFR (CKD-EPI)AfAm 97.69 04/09/20 06:00 Est GFR (CKD-EPI)NonAf 84.29 04/09/20 06:00 Random Glucose 96 mg/dl (74-106) 04/09/20 06:00 Calcium 8.8 mg/dl (8.5-10) 04/09/20 06:00 Magnesium 1.9 mg/dL (1.8-2.4) 04/09/20 06:00 Total Bilirubin 0.8 mg/dl (0.2-1) 04/09/20 06:00 AST 24 U/L (15-37) 04/09/20 06:00 ALT 17 U/L (13-61) 04/09/20 06:00 Alkaline Phosphatase 70 U/L (45-117) D 04/09/20 06:00 Creatine Kinase 54 U/L (26-192) 04/04/20 17:26 Troponin I < 0.03 ng/ml (0.00-0.05) 04/04/20 17:26 Total Protein 6.3 g/dl (6.4-8.2) L 04/09/20 06:00 Albumin 3.3 g/dl (3.4-5.0) L 04/09/20 06:00 Urine Color Yellow 04/04/20 17:50 Urine Appearance Clear 04/04/20 17:50 Urine pH 7.0 (4.5-8) 04/04/20 17:50 Urine Protein Negative (NEGATIVE) 04/04/20 17:50 Urine Glucose (UA) Negative (NEGATIVE) 04/04/20 17:50 Urine Ketones Negative (NEGATIVE) 04/04/20 17:50 Urine Blood Negative (NEGATIVE) 04/04/20 17:50 Urine Nitrite Negative (NEGATIVE) 04/04/20 17:50 Urine Bilirubin Negative (NEGATIVE) 04/04/20 17:50 Urine Urobilinogen 0.2 (0.2-1.0) 04/04/20 17:50 Ur Leukocyte Esterase Trace (NEGATIVE) H 04/04/20 17:50 Urine RBC 0-2 /hpf (0-4) 04/04/20 17:50 Urine WBC 5-10 (NEGATIVE) 04/04/20 17:50 Urine Bacteria Few /hpf (NEGATIVE) 04/04/20 17:50 Ur Random Creatinine 30.0 mg/dL 04/05/20 11:30 COVID-19 ([facility]UDENCIO) Not detected (Not Detected) 04/04/20 17:55 tele: afib, rate low 100s now, rvr 130s-140s at times cxr: clear lungs echo 03/2020: nl lv/rv, moderate TR with mild to mod PHTN. Moderate AR ecg: sr nl intervals no ischemic changes; repeat ecg with afib and mild rvr, no ischemic changes a/p: 84-year-old female with a history of pafib, HTN and rheumatoid arthritis who presented to the ED for evaluation of recurrent left lower extremity cellulitis. LE cellulitis: -Abx per ID -F/u culture sensitivities pafib: -in sr initially here, then in afib with rvr. will increase toprol 25 qd to bid, monitor on tele -Probably driven by infection -Patient [id number] score indicates AC is appropriate; however, she requires chronically very high dose of ASA to control her severe RA symptoms. Without it, she cannot move. Adding full AC on top of this poses a significant risk of bleeding at her age that outweighs the potential benefits. -recent Echo with normal LVEF AR: Moderate, outpatient f/u PHTN: -Possibly due to chronic RA; outpatient f/u.
[2020-04-09] MEDS ORDERED: metoPROLOL SUCCINATE 25 MG TAB.SR.24H (FP) PO ONE (14:00)
--- NOTE | 2020-04-09 14:13 | PN ---
Progress Note, Physician - Current Medication List Current Medications: Active Medications Aspirin (Asa -) 975 mg PO TID [facility] Last Admin: 04/09/20 08:28 Dose: 975 mg Documented by: Docusate Sodium (Colace -) 100 mg PO TID [facility] Last Admin: 04/09/20 06:17 Dose: Not Given Documented by: Enoxaparin Sodium (Lovenox -) 40 mg SQ DAILY [facility] Last Admin: 04/09/20 09:37 Dose: 40 mg Documented by: Ampicillin Sodium/Sulbactam (Sodium 3 gm/ Sodium Chloride) 100 mls @ 200 mls/hr IVPB Q6H-IV [facility] Last Admin: 04/09/20 09:30 Dose: 200 mls/hr Documented by: Metoprolol Succinate (Toprol Xl -) 25 mg PO BID [facility] Multivitamins/Minerals/Vitamin C (Tab-A-Vit -) 1 tab PO DAILY [facility] Last Admin: 04/09/20 10:24 Dose: 1 tab Documented by: Pantoprazole Sodium (Protonix -) 40 mg PO DAILY [facility] Last Admin: 04/09/20 10:24 Dose: 40 mg Documented by: Potassium Chloride (K-Dur -) 10 meq PO DAILY [facility] Last Admin: 04/09/20 10:24 Dose: 10 meq Documented by: Triamterene/HCTZ (Dyazide 25/37.5mg) 1 cap PO DAILY [facility] Last Admin: 04/09/20 09:30 Dose: 1 cap Documented by: - Objective Vital Signs: Vital Signs Temperature 98.5 F 04/09/20 14:04 Pulse Rate 119 H 04/09/20 14:04 Respiratory Rate 18 04/09/20 14:04 Blood Pressure 134/66 04/09/20 14:04 O2 Sat by Pulse Oximetry (%) 99 04/09/20 14:04 Labs: CBC, BMP 04/09/20 06:00 04/09/20 06:00 INR, PTT INR 1.11 (0.82-1.09) 04/04/20 17:26
[2020-04-10] MEDS ORDERED: AMPICILLIN NA/SULBACTAM NA 3 GM VIAL ONE ×4 (03:44→21:53)
[2020-04-10] MEDS ORDERED: SODIUM CHLORIDE 100 ML IVPB ONE ×4 (03:44→21:53)
[2020-04-10] MEDS: AMPICILLIN NA/SULBACTAM NA 3 GM in SODIUM CHLORIDE 100 ML IVPB SCH ×4 (03:51→21:55)
[2020-04-10] MEDS: ASPIRIN 325 MG TABLET PO SCH ×4 (06:19→21:55)
[2020-04-10] MEDS: DOCUSATE SODIUM 100 MG CAPSULE (FP) PO SCH ×4 (06:19→22:03)
[2020-04-10] MEDS: MULTIVITAMINS (DAILY MVI) TABLET (FP) PO SCH (10:37)
[2020-04-10] MEDS: PANTOPRAZOLE 40 MG TABLET PO SCH (10:37)
[2020-04-10] MEDS: ENOXAPARIN NA (PORCINE) 40 MG/0.4 ML DISP.SYRIN SQ SCH (10:37)
[2020-04-10] MEDS: metoPROLOL SUCCINATE 25 MG TAB.SR.24H (FP) PO SCH ×2 (10:37→21:56)
[2020-04-10] MEDS: TRIAMTERENE AND HCTZ - 37.5 MG/25 MG CAPSULE PO SCH (10:37)
[2020-04-10] MEDS: POTASSIUM CHLORIDE TABS 10 MEQ TABLET.ER (FP) PO SCH (10:37)
--- NOTE | 2020-04-10 10:55 | PN ---
Progress Note (short form) - Note Progress Note: s: no chest pain, palps, dizziness, dyspnea Current Medications Generic Name Dose Route Start Last Admin Trade Name Rachael PRN Reason Stop Dose Admin Aspirin 975 mg 04/05/20 14:45 04/10/20 06:24 Asa - PO Not Given TID [facility] Docusate Sodium 100 mg 04/05/20 06:00 04/10/20 06:19 Colace - PO Not Given TID DAVY Enoxaparin Sodium 40 mg 04/05/20 10:00 04/10/20 10:37 Lovenox - SQ 40 mg DAILY DAVY Administration Ampicillin Sodium/Sulbactam 100 mls @ 200 mls/hr 04/06/20 15:00 04/10/20 09:10 Sodium 3 gm/ Sodium Chloride IVPB 200 mls/hr Q6H-IV DAVY Administration Metoprolol Succinate 25 mg 04/10/20 10:00 04/10/20 10:37 Toprol Xl - PO 25 mg BID DAVY Administration Multivitamins/Minerals/Vitamin C 1 tab 04/06/20 10:00 04/10/20 10:37 Tab-A-Vit - PO 1 tab DAILY DAVY Administration Pantoprazole Sodium 40 mg 04/05/20 13:00 04/10/20 10:37 Protonix - PO 40 mg DAILY DAVY Administration Potassium Chloride 10 meq 04/08/20 10:00 04/10/20 10:37 K-Dur - PO 10 meq DAILY DAVY Administration Triamterene/HCTZ 1 cap 04/06/20 10:00 04/10/20 10:37 Dyazide 25/37.5mg PO 1 cap DAILY DAVY Administration Vital Signs Period Temp Pulse Resp BP Sys/Stover Pulse Ox Last 24 Hr 97.4 F-98.5 F 69-119 18-20 118-142/52-66 97-100 Constitutional: Yes: No Distress, Calm Eyes: Yes: Conjunctiva Clear, EOM Intact Respiratory: Yes: CTA Bilaterally nl eff Gastrointestinal: Yes: Soft (nt) Cardiovascular: Yes: irreg JVD: No Carotid Bruit: No Heart Sounds: Yes: S1, S2 (rrr, no murmurs) Edema: no Peripheral Pulses WNL: Yes Integumentary: Yes: Other (LE cellulitis as documented) Neurological: Yes: Alert, Oriented no jaundice diaphoresis not agitated tele: afib rvr 130s-140s at times yesterday afternoon -> sinus cxr: clear lungs echo 03/2020: nl lv/rv, moderate TR with mild to mod PHTN. Moderate AR ecg: sr nl intervals no ischemic changes; repeat ecg with afib and mild rvr, no ischemic changes a/p: 84-year-old female with a history of pafib, HTN and rheumatoid arthritis who presented to the ED for evaluation of recurrent left lower extremity cellulitis. LE cellulitis: -Abx per ID -F/u culture sensitivities pafib: -in sr initially here, then in afib with rvr. increased toprol to 25 bid, now in sinus -Probably driven by infection -Patient [id number] score indicates AC is appropriate; however, she requires chronically very high dose of ASA to control her severe RA symptoms. Without it, she cannot move. Adding full AC on top of this poses a significant risk of bleeding at her age that outweighs the potential benefits. -recent Echo with normal LVEF AR: Moderate, outpatient f/u PHTN: -Possibly due to chronic RA; outpatient f/u.
--- NOTE | 2020-04-10 12:07 | EKG ---
Test Reason : Blood Pressure : / mmHG Vent. Rate : 098 BPM Atrial Rate : 150 BPM P-R Int : 000 ms QRS Dur : 086 ms QT Int : 310 ms P-R-T Axes : 000 -10 011 degrees QTc Int : 395 ms ATRIAL FIBRILLATION MINIMAL VOLTAGE CRITERIA FOR LVH, MAY BE NORMAL VARIANT INFERIOR INFARCT , AGE UNDETERMINED ABNORMAL ECG WHEN COMPARED WITH ECG OF 05-APR-2020 15:14, ATRIAL FIBRILLATION HAS REPLACED SINUS RHYTHM QT HAS SHORTENED Confirmed by MD Tripp, Ahsan ([id number]) on 04/10/2020 12:06:39 PM Referred By: PARADISE MILLER Confirmed By:Ahsan Almaguer MD
--- NOTE | 2020-04-10 14:15 | DS ---
Physical Exam: SUBJECTIVE: Patient seen and examined OBJECTIVE: Vital Signs Period Temp Pulse Resp BP Sys/Stover Pulse Ox Last 24 Hr 97.4 F-98.4 F 69-90 18-18 118-142/52-69 96-100 PHYSICAL EXAM GENERAL: Awake, alert, and fully oriented, in no acute distress. LUNGS: Breath sounds equal, clear to auscultation bilaterally HEART: Irregular, S1, S2 ABDOMEN: Soft, nontender, not distended UPPER EXTREMITIES: 2+ pulses, warm, well-perfused. No cyanosis. No clubbing. No peripheral edema. RLE: dressings removed, skin is intact, erythema and fluctuance has resolved; 2+ pulses, warm, well-perfused LLE: dressings removed, 1cm wound s/p I&D, no drainage, no bleeding, edges are clear; surrounding erythema and swelling resolved; 2+ pulses, warm, well- perfused NEUROLOGICAL: Cranial nerves II-XII intact. Normal speech. LABS CBCD WBC 5.7 K/mm3 (4.0-10.8) 04/09/20 06:00 RBC 3.95 M/mm3 (3.60-5.2) 04/09/20 06:00 Hgb 10.9 GM/dl (10.7-15.3) 04/09/20 06:00 Hct 33.2 % (32.4-45.2) 04/09/20 06:00 MCV 83.9 fl (80-96) 04/09/20 06:00 MCHC 32.8 g/dl (32.0-36.0) 04/09/20 06:00 RDW 14.4 % (11.6-15.6) 04/09/20 06:00 Plt Count 211 K/MM3 (134-434) 04/09/20 06:00 MPV 8.9 fl (7.5-11.1) 04/09/20 06:00 CMP Sodium 140 mmol/L (136-145) 04/09/20 06:00 Potassium 3.9 mmol/L (3.5-5.1) 04/09/20 06:00 Chloride 100 mmol/L (98-107) 04/09/20 06:00 Carbon Dioxide 28 mmol/L (21-32) 04/09/20 06:00 Anion Gap 12 MMOL/L (8-16) 04/09/20 06:00 BUN 14.0 mg/dl (7-18) 04/09/20 06:00 Creatinine 0.6 mg/dl (0.55-1.3) 04/09/20 06:00 Calcium 8.8 mg/dl (8.5-10) 04/09/20 06:00 Total Bilirubin 0.8 mg/dl (0.2-1) 04/09/20 06:00 AST 24 U/L (15-37) 04/09/20 06:00 ALT 17 U/L (13-61) 04/09/20 06:00 Alkaline Phosphatase 70 U/L (45-117) D 04/09/20 06:00 Total Protein 6.3 g/dl (6.4-8.2) L 04/09/20 06:00 Albumin 3.3 g/dl (3.4-5.0) L 04/09/20 06:00 HOSPITAL COURSE: Date of Admission:04/04/20 Date of Discharge: 04/11/20 Pre hospital course 84 year-old female with a PMH significant for HTN, paroxysmal atrial fibrill ation, venous insufficiency, and rheumatoid arthritis. Recently hospitalized from 03/06-03/14 for LLE cellulitis and MSSA bacteremia, discharged with PICC line x 2 weeks Ancef. Patient was seen in [facility] on 04/[address] Edwards and found to have abscess of LLE and bilateral cellulitis. Dr. Jackson performed an incision and drainage. Patient was directed to the [facility] for admission to the hospital. ER course (1) afebrile, no leukocytosis Subsequent hospital course 84 year-old female with a PMH significant for HTN, paroxysmal atrial fibrillation, venous insufficiency, and rheumatoid arthritis. Recently hospitalized from 03/06-03/14 for LLE cellulitis and MSSA bacteremia. Bilateral lower extremity cellulitis Right lower extremity abscess --s/p I&D on 04/04 --treated with Vanc, Zosyn, then Unasyn for total of 7 days IV antibiotics; significant improvement --treated with daily xerofoam dressing changes --maintained compression stockings bilaterally Paroxysmal atrial fibrillation with RVR --initially diagnosed during previous hopitalization; [id number] score indicates AC is appropriate but decision made not to start anticoagulation due to high dose ASA for RA --during hospital stay had several episodes of RVR to 160s; increased ToprolXL to 25mg BID and return to sinus rhythm --needs outpatient cardiology followup Rheumatoid arthritis --continued home aspirin regimen 975mg TID --continued protonix Minutes to complete discharge: 35 Discharge Summary Problems reviewed: Yes Reason For Visit: CELLULITIS OF LOWER EXTREMITY Current Active Problems Cellulitis of lower extremity (Acute) Condition: Improved - Instructions Diet, Activity, Other Instructions: Two prescriptions have been sent to your pharmacy: 1. Augmentin: this is an antibiotic, take as directed and until finished 2. ToprolXL: your dose has been increased to twice a day You need to follow up with three providers: 1. Dr. Miller 2. , acid strength inspector 3. Dr. Edwards, infectious disease/inventory specialist Visiting Nurse Service will come to your house for dressing changes. Patient requires xerofoam applied to the LLE wound daily, and maintenance of compression stockings bilaterally. Referrals: Destiny Edwards MD [Staff Physician] - 1 Week Kvng Miller MD [Primary Care Provider] - 1 Week Ben Lyles MD [Staff Physician] - 2 Weeks Disposition: HOME - Home Medications Comprehensive Discharge Medication List: Ambulatory Orders Multivitamin [Multivitamins] 1 each PO DAILY 01/13/13 Triamterene/Hydrochlorothiazid [Triamterene-Hctz 37.5-25 mg Tb] 1 each PO DAILY 01/13/13 Vitamin E 200 unit PO Q72H 01/13/13 Aspirin [Aspirin EC] 650 mg PO TID 01/10/14 Iron,Carbonyl/Ascorbic Acid [Iron 100-Vitamin C Tablet] 1 each PO DAILY tablet 12/18/14 Vitamin A 8,000 unit PO Q3RD DAY capsule 12/18/14 Vitamin B Complex 1 each PO ASDIR tablet 12/18/14 Cholecalciferol (Vitamin D3) [Vitamin D3 -] 1,000 unit PO DAILY 03/06/20 Docusate Sodium [Colace -] 100 mg PO TID #30 capsule 03/14/20 Metoprolol Succinate [Toprol Xl] 25 mg PO DAILY #30 tab.er.24h 03/14/20 Aspirin [ASA -] 975 mg PO HS 04/04/20 Astaxanthin 4 mg PO DAILY 04/04/20 Cephalexin [Keflex] 500 mg PO TID 04/04/20 Potassium Chloride 2 tab PO DAILY 04/04/20 This patient is new to me today: No Emergency Visit: Yes ED Registration Date: 04/04/20 Care time: The patient presented to the Emergency Department on the above date and was hospitalized for further evaluation of their emergent condition. Critical Care patient: No - Discharge Referral Referred to [facility] Med P.C.: No
--- NOTE | 2020-04-10 14:41 | PN ---
Progress Note, Physician - Current Medication List Current Medications: Active Medications Aspirin (Asa -) 975 mg PO TID [facility] Last Admin: 04/10/20 06:24 Dose: Not Given Documented by: Docusate Sodium (Colace -) 100 mg PO TID [facility] Last Admin: 04/10/20 06:19 Dose: Not Given Documented by: Enoxaparin Sodium (Lovenox -) 40 mg SQ DAILY [facility] Last Admin: 04/10/20 10:37 Dose: 40 mg Documented by: Ampicillin Sodium/Sulbactam (Sodium 3 gm/ Sodium Chloride) 100 mls @ 200 mls/hr IVPB Q6H-IV [facility] Last Admin: 04/10/20 09:10 Dose: 200 mls/hr Documented by: Metoprolol Succinate (Toprol Xl -) 25 mg PO BID [facility] Last Admin: 04/10/20 10:37 Dose: 25 mg Documented by: Multivitamins/Minerals/Vitamin C (Tab-A-Vit -) 1 tab PO DAILY [facility] Last Admin: 04/10/20 10:37 Dose: 1 tab Documented by: Pantoprazole Sodium (Protonix -) 40 mg PO DAILY [facility] Last Admin: 04/10/20 10:37 Dose: 40 mg Documented by: Potassium Chloride (K-Dur -) 10 meq PO DAILY [facility] Last Admin: 04/10/20 10:37 Dose: 10 meq Documented by: Triamterene/HCTZ (Dyazide 25/37.5mg) 1 cap PO DAILY [facility] Last Admin: 04/10/20 10:37 Dose: 1 cap Documented by: - Objective Vital Signs: Vital Signs Temperature 98.4 F 04/10/20 14:05 Pulse Rate 90 04/10/20 14:05 Respiratory Rate 18 04/10/20 14:05 Blood Pressure 139/69 04/10/20 14:05 O2 Sat by Pulse Oximetry (%) 96 04/10/20 14:05 Labs: CBC, BMP 04/09/20 06:00 04/09/20 06:00 INR, PTT INR 1.11 (0.82-1.09) 04/04/20 17:26
[2020-04-10] MEDS: NYSTATIN 100,000 UNIT/GM TOPICAL CREAM 15 GM TUBE TP SCH (21:55)
[2020-04-11] MEDS ORDERED: SODIUM CHLORIDE 100 ML IVPB ONE ×2 (01:09→09:05)
[2020-04-11] MEDS ORDERED: AMPICILLIN NA/SULBACTAM NA 3 GM VIAL ONE ×2 (01:09→09:05)
[2020-04-11] MEDS: AMPICILLIN NA/SULBACTAM NA 3 GM in SODIUM CHLORIDE 100 ML IVPB SCH ×2 (02:40→09:00)
[2020-04-11 06:42] VITALS: BP 134/59; PULSE 69; TEMP 97.8
[2020-04-11] MEDS: ASPIRIN 325 MG TABLET PO SCH (06:48)
[2020-04-11] MEDS: DOCUSATE SODIUM 100 MG CAPSULE (FP) PO SCH (06:48)
[2020-04-11] MEDS ORDERED: PT OWN MED DRAWER 7, Y5N ONE (10:14)
[2020-04-11] MEDS: POTASSIUM CHLORIDE TABS 10 MEQ TABLET.ER (FP) PO SCH (10:17)
[2020-04-11] MEDS: NYSTATIN 100,000 UNIT/GM TOPICAL CREAM 15 GM TUBE TP SCH (10:17)
[2020-04-11] MEDS: TRIAMTERENE AND HCTZ - 37.5 MG/25 MG CAPSULE PO SCH (10:17)
[2020-04-11] MEDS: ENOXAPARIN NA (PORCINE) 40 MG/0.4 ML DISP.SYRIN SQ SCH (10:17)
[2020-04-11] MEDS: MULTIVITAMINS (DAILY MVI) TABLET (FP) PO SCH (10:18)
[2020-04-11] MEDS: metoPROLOL SUCCINATE 25 MG TAB.SR.24H (FP) PO SCH (10:18)
[2020-04-11] MEDS: PANTOPRAZOLE 40 MG TABLET PO SCH (10:18)
--- NOTE | 2020-04-12 11:53 | EKG ---
Test Reason : Blood Pressure : / mmHG Vent. Rate : 070 BPM Atrial Rate : 070 BPM P-R Int : 192 ms QRS Dur : 090 ms QT Int : 418 ms P-R-T Axes : 042 -01 026 degrees QTc Int : 451 ms NORMAL SINUS RHYTHM NORMAL ECG WHEN COMPARED WITH ECG OF 09-APR-2020 09:37, SINUS RHYTHM HAS REPLACED ATRIAL FIBRILLATION CRITERIA FOR INFERIOR INFARCT ARE NO LONGER PRESENT QT HAS LENGTHENED Confirmed by RADHA BE, SAMSON ([id number]) on 04/12/2020 11:52:58 AM Referred By: PARADISE MILLER Confirmed By:SAMSON GARCIA MD
== END 2020-04-11 10:27 | disposition home health service (06) | DRG 603 ==
LOC: FER 16:27 → FM/S 20:55
PROVIDERS: ADMIT Internal Medicine; ATTEND Nurse Practitioner Acute Care
DX: L03.115 Cellulitis of right lower limb (principal); L02.415 Cutaneous abscess of right lower limb; L03.116 Cellulitis of left lower limb; I48.0 Paroxysmal atrial fibrillation; I27.20 Pulmonary hypertension, unspecified; I10 Essential (primary) hypertension; G62.9 Polyneuropathy, unspecified; M06.9 Rheumatoid arthritis, unspecified; Z96.642 Presence of left artificial hip joint; Z86.14 Personal history of Methicillin resistant Staphylococcus aureus infection
CPT/HCPCS: 11042; 36415; 71045-TC-FY; 80048; 80053; 81003; 81015; 82550; 82565; 83735; 84484; 85025; 85027; 85610; 87040; 87070; 87086; 87205; 93005; 93010; 97116-GP; 97161-GP; 99285-25; U0003

== ENCOUNTER 2021-06-14 11:18 | Emergency (ER) | payer OTHER, MEDICARE ==
[2021-06-14 11:54] LABS: EPITHELIAL CELLS MANY /hpf
[2021-06-14 12:00] LABS: BASO % 0.6 % (0-2.0); EOS % 0.8 % (0-4.5); HEMATOCRIT 36.5 % (32.4-45.2); HEMOGLOBIN 12.1 GM/dl (10.7-15.3); MCH 28.9 pg (25.7-33.7); MCHC 33.3 g/dl (32.0-36.0); MEAN PLT VOLUME 8.6 fl (7.5-11.1); MONO % 8.6 % (3.8-10.2); PLATELET COUNT 175 10^3/uL (134-434); RBC 4.19 M/mm3 (3.60-5.2); RDW 13.3 % (11.6-15.6); WHITE BLOOD COUNT 9.6 K/mm3 (4.0-10.8)
[2021-06-14 12:03] LABS: ACTIVATED PTT 27.5 SECONDS (25.2-36.5)
[2021-06-14 12:07] LABS: ALBUMIN 3.8 g/dl (3.4-5.0); BILIRUBIN,TOTAL 1.2 mg/dl (0.2-1); CALCIUM 8.6 mg/dl (8.5-10); CREATININE 0.6 mg/dl (0.55-1.3); TOT PROT 6.4 g/dl (6.4-8.2)
[2021-06-14 12:08] LABS: INR 1.08 (0.82-1.09)
[2021-06-14 12:24] LABS: ERYTHROCYTE SEDIMENTATION RATE 25 mm/hr (0-30)
[2021-06-14] MEDS ORDERED: DALBAVANCIN HCL 1,500 MG in DEXTROSE 5%-WATER - 500 ML IVPB ONE (12:38)
[2021-06-14] MEDS ORDERED: ACETAMINOPHEN 1000 MG/100 ML VIAL (NON FORMULARY) IVPB ONE (13:22)
[2021-06-14] MEDS ORDERED: ACETAMINOPHEN 500 MG TABLET (FP) ONE (13:32)
[2021-06-14] MEDS ORDERED: ACETAMINOPHEN 500 MG TABLET (FP) PO ONE (13:32)
[2021-06-14 13:45] LABS: N-TERMINAL BNP 1498.3 pg/ml (5-450)
[2021-06-14 14:56] VITALS: BP 110/55; PULSE 77; TEMP 99.3
== END 2021-06-14 15:31 | disposition left against medical advice (07) ==
LOC: FER 11:18
PROC: 3E03329 Introduction of Other Anti-infective into Peripheral Vein, Percutaneous Approach (ICD-10-PCS; principal; 2021-06-14)
PROC: 3E033NZ Introduction of Analgesics, Hypnotics, Sedatives into Peripheral Vein, Percutaneous Approach (ICD-10-PCS; 2021-06-14)
DX: L03.115 Cellulitis of right lower limb (principal); L03.116 Cellulitis of left lower limb
CPT/HCPCS: 36415; 71045-TC-FY; 80053; 81003; 81015; 83880; 85025; 85610; 85651; 85730; 87086; 99284-25; C9803; J0875; U0003; U0005